=== PATIENT | female | born 1935 | race Caucasian/White ===

== ENCOUNTER 2017-01-09 11:27 | Outpatient (CLI) ==
[2016-03-07 17:02] VITALS: BMI 21.3
[2017-01-09 11:56] LABS: FLU INTERNAL QC INTERNAL QC VALID; RAPID FLU A NEGATIVE (NEGATIVE); RAPID FLU B NEGATIVE (NEGATIVE)
--- NOTE | 2017-01-09 12:21 | DI ---
EXAM: PA and lateral views of the chest HISTORY: Cough with congestion COMPARISON: Chest x-ray 01/22/2015 FINDINGS: The cardiomediastinal silhouette is normal. There is no pneumothorax or pleural effusion . There is no consolidation, nodule or mass. Lungs are mildly hyperinflated. The osseous structures demonstrate lumbar fusion hardware. IMPRESSION: Mild hyperinflation suggestive of chronic obstructive pulmonary disease with no acute c onsolidation.
== END 2017-01-09 11:28 | disposition home or self-care (01) ==
LOC: LAB 11:27
PROVIDERS: ATTEND Emergency Medicine
DX: R05 Cough (principal); R50.9 Fever, unspecified; R09.89 Other specified symptoms and signs involving the circulatory and respiratory systems
CPT/HCPCS: 87804

== ENCOUNTER 2017-12-25 11:38 | Outpatient (CLI) ==
[2016-03-07 17:02] VITALS: BMI 21.3
--- NOTE | 2017-12-25 13:23 | US ---
EXAM: Bilateral carotid artery Doppler History: Dizziness. Technique: Multiple sonographic images through the bilateral internal carotid arteries were obtained . Color duplex Doppler was used to interrogate vascular flow. Findings: The right ICA peak systolic velocities within normal limits measuring 1.0 meters per second. The rig ht ICA/cca PSV ratio is normal at 1.7. The right vertebral artery is patent and demonstrates antegra de flow. Gutierrez scale images demonstrate mild plaque buildup within the right internal carotid artery. The left ICA peak systolic velocity is within normal limits measuring 0.6 meters per second. The lef t ICA/cca PSV ratio is normal at 1.0. The left vertebral artery is patent and demonstrates antegrade flow. Gutierrez scale images demonstrate mild plaque buildup within the left internal carotid artery. Impression: No significant hemodynamic stenosis of the bilateral internal carotid arteries.
== END 2017-12-25 11:39 | disposition home or self-care (01) ==
LOC: RAD 11:38
PROVIDERS: ATTEND Internal Medicine
DX: R42 Dizziness and giddiness (principal)

== ENCOUNTER 2017-12-29 14:58 | Outpatient (CLI) ==
[2016-03-07 17:02] VITALS: BMI 21.3
--- NOTE | 2017-12-29 16:13 | CT ---
EXAM: CT head without contrast HISTORY: Labyrinthitis/and dizziness COMPARISON: None TECHNIQUE: Serial axial images of the brain were obtained from the skull base to the vertex without IV contrast. FINDINGS: The ventricles, cisterns and sulci demonstrate generalized volume loss. The ocampo-white ma tter junction is maintained. There is scattered low attenuation throughout the periventricular white matter.No midline shift or mass is identified. There is no abnormal intra or extra-axial fluid fidel ection. The paranasal sinuses demonstrate chronic right maxillary sinusitis changes. The mastoid ai r cells are clear. The osseous calvarium is intact. IMPRESSION: 1. No acute intracranial abnormality or hemorrhage. If further evaluation is indicated, MRI may be o btained. 2. The mastoid air cells are clear. 3. Chronic right maxillary sinusitis.
== END 2017-12-29 14:59 | disposition home or self-care (01) ==
LOC: RAD 14:58
PROVIDERS: ATTEND General Practice
DX: H83.09 Labyrinthitis, unspecified ear (principal); H65.93 Unspecified nonsuppurative otitis media, bilateral; H81.10 Benign paroxysmal vertigo, unspecified ear

== ENCOUNTER 2018-01-02 00:01 | Outpatient (POV) | payer OTHER ==
[2016-03-07 17:02] VITALS: BMI 21.3
== END 2018-01-02 17:00 ==
LOC: OUTPT 00:01
PROVIDERS: ATTEND Otolaryngology
DX: H91.90 Unspecified hearing loss, unspecified ear (principal); R42 Dizziness and giddiness

== ENCOUNTER 2018-11-01 14:16 | Inpatient (IN) ==
[2018-11-01] MEDS ORDERED: [UNRECOGNIZED DRUG - REMARK] MM PRN (14:57)
[2018-11-01 15:00] VITALS: BMI 23.5
[2018-11-01] MEDS: COREG PO SCH (16:32)
[2018-11-01] MEDS: XARELTO PO SCH (16:32)
[2018-11-01] MEDS: ULTRAM PO PRN (18:21)
[2018-11-01] MEDS: LIPITOR PO SCH (21:14)
[2018-11-02] MEDS: ULTRAM PO PRN ×3 (02:41→20:49)
[2018-11-02] MEDS: SYNTHROID PO SCH (05:55)
--- NOTE | 2018-11-02 08:21 | RS.PTINEVL ---
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 States her son in law drove her to [facility]. - Level of function Prior to this admission, the patient could do the following:: Independent Selfcare, Independent ADL's, Independent Ambulation, Drive, Participated in Social Activities Outside home Current Level of Function: Partially Dependent Current Equipment Used at Home: rollator rwx, cane, Pain Assessement - Location Right Knee Description: Aching Pain Behavior: Rubbing Site, Facial Grimacing Pain Aggravating Factors: Changing Position, Exercise/Activity, Standing, Walking Pain Alleviating Factors: Ice, Medication Interventions - Objective Patient Orientation: Person, Place, Time, Situation Observation: pt with steri strips on incision. Bruising noted to R knee. Range of Motion - ROM Right Upper Extremity AROM: WFL's Left Upper Extremity AROM: WFL's Right Lower Extremity AROM: Moderate limitation (knee flex/ext limited s/p TKR) Left Lower Extremity AROM: WFL's Muscle Strength - Muscle Strength Right Upper Extremity Strength: Mild Weakness (grossly 4/5) Left Upper Extremity Strength: Mild Weakness (grossly 4/5) Right Lower Extremity Strength: Mild Weakness (hip flex 4-/5, knee flex 3-/5, ext 3-/5, ankle Df/PF 4/5) Left Lower Extremity Strength: Mild Weakness (grossly 4+/5) Sensation - Sensation Right Upper Extremity Sensation: Intact/Normal Left Upper Extremity Sensation: Intact/Normal Right Lower Extremity Sensation: Intact/Normal Left Lower Extremity Sensation: Intact/Normal Palpation Palpation Findings: Tenderness Comments:: R knee s/p TKR Balance - Sitting Balance and Reactions Static Sitting Balance: Good Dynamic Sitting Balance: Fair Sitting Equilibrium Reactions: Within Normal Limits Left, Within Normal Limit Right Sitting Protective Reactions: Within Normal Limits Left, Within Normal Limit Right - Standing Balance and Reactions Static Standing Balance: Poor Dynamic Standing Balance: Poor Standing Equilibrium Reactions: Delayed Left, Delayed Right Standing Protective Reactions: Delayed Left, Delayed Right Functional Mobility - Bed Mobility Rolling R/L: CGA Scooting: Min Assist Supine to Sit: Min Assist Sit to Supine: Min Assist - Transfers Sit to Stand: Min Assist Stand to Sit: Min Assist - Safety Awareness Safety Awareness: Good ANU INDEX SCORE: 59 Ambulation - Ambulation Assistive Device Used: Rolling Walker Orthotic/Prosthetic Device: No Distance: 75ft Assistance needed with Ambulation: CGA Gait Deviations: Forward posture, Short stride Ambulation Comments: pt amb with decreased step length and flexed posture, decreased heel strike/toe off gait pattern. Factors Affecting Ambulation: Decreased Balance, Pain, Weakness, Decreased ROM, Decreased Safety Treatment time - Time with patient Length of Evaluation: 19 Total treatment time: 31 Patient Education - Education Patient Education: Activity Modification, Education of Plan of Care Teaching Recipient: Patient Teaching Methods: Discussion Comments: discussion regarding POC and safety with transfers and gait. Assessment - Assessment Problem List:: Decreased level of function, Requires training/education, Decreased safety/Risk of falls, Weakness, Pain limits previous level of function Rehab Potential: Good Further Therapy Indicated?: Yes Candidate for Swing Bed for Therapy Services?: pt is a swing bed patient Evaluation Complexity: HISTORY: Medium (RTKR, vertigo, hypotension, OA, ), EXAM OF BODY SYSTEMS: Medium (ROM, balance, strength, gait, transfers), CLINICAL PRESENTATION: Medium, CLINICAL DECISION MAKING: Medium Short Term Goals GOAL #1: pt independent with bed mobility Goal to be met by: 11/06/18 GOAL #2: pt transfer sup to/from sit to/from stand CGA to SBA Goal to be met by: 11/06/18 GOAL #3: pt amb 150ft with rwx with CGA to SBA with improved sequencing. Goal to be met by: 11/06/18 GOAL #4: Improve ROM R knee flex 90 ext -7 Goal to be met by: 11/06/18 [place] Goals GOAL #1: pt independent with HEP Goal to be met by: 11/12/18 GOAL #2: pt transfer sup to/from sit to/from stand independently Goal to be met by: 11/12/18 GOAL #3: pt amb functional household distances with rwx with no LOB Goal to be met by: 11/12/18 Plan Plan of Care: Therapeutic EX, Therapeutic Activity Other:: gait training Frequency of Treatment: 1-2 X day, as tolerated Duration of Treatment: 10 days Anticipated Discharge Destination: Home Treatment Diagnosis (ICD 10 Codes): aftercare following total knee replacement. R26.2 difficulty walking. R26.81 balance impaired. M62.81 muscle weakness Has the Physician been added for Co-signature?: Yes
[2018-11-02] MEDS: BALANCED B-100 PO SCH (08:48)
[2018-11-02] MEDS: MULTIVITAMIN TABLET PO SCH (08:48)
[2018-11-02] MEDS: OMEGA-3 FISH OIL PO SCH (08:48)
[2018-11-02] MEDS: VITAMIN E PO SCH (08:48)
[2018-11-02] MEDS: CALCIUM 500 + VIT D 200 MG TABLET PO SCH (08:48)
--- NOTE | 2018-11-02 08:50 | PCM.PROG ---
Attending Provider: ATTENDING PROVIDER: Dr. LEA BALES This patient is seen with Krista Last, Nurse Practitioner. DATE OF SERVICE: 11/02/18 SUBJECTIVE: This 83 year old WHITE/ F was hospitalized 11/01/18. The patient is sitting in chair resting comfortably. Right knee mildly swollen with minimal erythema. She states she didn't sleep very well last night. REVIEW OF SYSTEMS: CONSTITUTIONAL: No night sweats. No fatigue, malaise, lethargy. No fever or chills. HEENT: Eyes: No visual changes. No eye pain. No eye discharge. ENT: No runny nose. No epistaxis. No sinus pain. No odynophagia. No congestion. RESPIRATORY: No cough, no congestion. No hemoptysis. No shortness of breath. CARDIOVASCULAR: No angina symptoms. No CHF symptoms. No atypical chest pain for CAD. No palpitations. No orthopnea.. GASTROINTESTINAL: No abdominal pain. No nausea or vomiting. No diarrhea or constipation. No hematemesis. No hematochezia. GENITOURINARY: No urgency. No frequency. No dysuria. No hematuria. No obstructive symptoms. No discharge. No pain. No significant abnormal bleeding. MUSCULOSKELETAL: Right knee pain. NEUROLOGICAL: Awake, alert, oriented to time, place and person. No headache. No neck pain. No syncope. No seizures. No dizziness. PSYCHIATRIC: Not anxious. No depression. No suicidal thoughts. No homicidal thoughts. SKIN: No rash. No lesions. Right knee incision; clean, dry and intact. ENDOCRINE: No unexplained weight loss. No weight gain. HEMATOLOGIC/LYMPHATIC: No anemia. No purpura. No petechiae. No prolonged or excessive bleeding. No palpable lymph nodes. PHYSICAL EXAMINATION: GENERAL: The patient is awake, alert and oriented, sitting in chair in no distress. VITAL SIGNS: Temperature 98.4 F, Pulse 84, Respiratory Rate 16, BP 116/67, Pulse Ox 94% HEENT: Head normocephalic, atraumatic. Eyes: Extraocular muscles are intact. Pupils are equal, round and reactive to light and accommodation. Ears: No lesions. Nose appeared normal. Throat: No exudate or erythema. NECK: Supple. No JVD, no carotid bruit. No lymphadenopathy or thyromegaly. LUNGS: Clear to auscultation. Percussion note normal. Chest symmetrical. HEART: S1, S2, no S3. No murmurs. No cyanosis or clubbing. No ascites. Pulses: Dorsalis pedis and posterior tibial pulses +1 to +2 both sides. ABDOMEN: Soft. Non-tender. Bowel sounds active. No CVA tenderness. No mass felt. EXTREMITIES: Right knee incision. No edema. Full range of motion of all extremities, equal. NEUROLOGIC: No focal deficit. Cranial nerves II through XII are grossly intact. No headache, no double vision or headache. SKIN: Warm and dry. Right knee incision clean, dry and intact. No signs or symptoms of infection. Turgor-normal. LYMPHATIC: No palpable lymph nodes/no lymphedema. MUSCULOSKELETAL: Normal joints with no swelling. Muscle tone is normal. LAB REVIEW: 11/02/18 05:00 11/02/18 05:00 11/02/18 05:00: Sodium 132.1 L, Potassium 3.67, Chloride 96.0 L, Carbon Dioxide 33.9 H, Anion Gap 5.87, BUN 9.6, Creatinine 0.56 L, Estimated GFR (MDRD) 103.00 , BUN/Creatinine Ratio 17.14, Glucose 103.8, Calcium 8.94, Total Bilirubin 0.94 , AST 23.0, ALT 13.6, Alkaline Phosphatase 64.5, Total Protein 6.50, Albumin 3.42 L, Globulin 3.08, Albumin/Globulin Ratio 1.11 11/02/18 05:00: WBC 8.79, RBC 3.48 L, Hgb 10.6 L, Hct 32.2 L, MCV 92.5, MCH 30.5 , MCHC 32.9, RDW Coeff of Coy 13.5, Plt Count 268, Immature Gran % (Auto) 0.5, Neut % (Auto) 60.5, Lymph % (Auto) 24.0, [place] % (Auto) 13.1 H, Eos % (Auto) 1.4 , Baso % (Auto) 0.5, Immature Gran # (Auto) 0.0, Neut # (Auto) 5.3, Lymph # ( Auto) 2.1, [place] # (Auto) 1.2, Eos # (Auto) 0.1, Baso # (Auto) 0.0 ASSESSMENT:. 1. STATUS POST RIGHT KNEE REPLACEMENT, GAIT DISTURBANCE. 2. ANEMIA, SECONDARY TO SURGERY. PLAN: 1. Ativan 0.5 mg q.8 hs 2. Tylenol 500 mg q.6hr p.r.n. Plan and coordination of the patient's care discussed in the presence of Communications Manager and nurse. CONDITION: Stable SCRIBED BY: CECIL PEDERSON Inside [employer] scribed while in presence of service performed by Dr. Bales/Krista Last APRN on 11/02/18 ([id number])
[2018-11-02] MEDS: VITAMIN C PO SCH (08:53)
[2018-11-02] MEDS: COREG PO SCH ×2 (08:53→16:40)
[2018-11-02] MEDS: GINKGO BILOBA 60 MG PO SCH (08:55)
[2018-11-02] MEDS: TURMERIC ROOT EXTRACT PO SCH (08:58)
[2018-11-02] MEDS ORDERED: CALCIUM CARB PO SCH (09:00)
[2018-11-02] MEDS ORDERED: CITRATE PO SCH (09:00)
[2018-11-02] MEDS ORDERED: VITAMIN E 400 UNIT PO SCH (09:00)
[2018-11-02] MEDS ORDERED: VIT D3 PO SCH (09:00)
[2018-11-02] MEDS ORDERED: [UNRECOGNIZED DRUG - OTHER] PO SCH (09:00)
--- NOTE | 2018-11-02 10:46 | HP ---
DATE OF SERVICE: 11/01/18 REASON FOR HOSPITALIZATION/HISTORY OF PRESENT ILLNESS: 83 year old white female who just recently underwent a right total knee replacement by Dr. Sabino Mcintosh. She is here for PT and OT due to decline in mobility and gait disturbances. PAST MEDICAL HISTORY: Coronary artery disease with stent Hypothyroidism Dyslipidemia Anemia Polyarthritis Asthma Anxiety PAST SURGICAL HISTORY: L2 L3, L3 and L4 PLIF Dr. Thompson in [place] in February 2016 Coronary artery disease with stent in January [address] Elsy Mckeon Spine decompression with bilateral L5 instrumentation, Dr. Chilel in 1992 REVIEW OF SYSTEMS: CONSTITUTIONAL: No night sweats. No fatigue, malaise, lethargy. No fever or chills. HEENT: Eyes: No visual changes. No eye pain. No eye discharge. ENT: No runny nose. No epistaxis. No sinus pain. No sore throat. No odynophagia. No ear pain. No congestion. RESPIRATORY: No cough, no congestion. No hemoptysis. No shortness of breath. CARDIOVASCULAR: No angina symptoms. No CHF symptoms. No atypical chest pain for CAD. No palpitations. No PND. No orthopnea. GASTROINTESTINAL: No abdominal pain. No nausea or vomiting. No diarrhea or constipation. No hematemesis. No hematochezia. GENITOURINARY: No urgency. No frequency. No dysuria. No hematuria. No obstructive symptoms. No discharge. No pain. No significant abnormal bleeding. MUSCULOSKELETAL: No musculoskeletal pain. No joint swelling. No arthritis. Leg weakness. Right knee swelling and pain. NEUROLOGICAL: No headache. No neck pain. No syncope. No seizures. No dizziness. PSYCHIATRIC: Not anxious. No depression. No suicidal thoughts. No homicidal thoughts. SKIN: No rash. No lesions. No wounds. ENDOCRINE: No unexplained weight loss. No weight gain. HEMATOLOGIC/LYMPHATIC: No anemia. No purpura. No petechiae. No prolonged or excessive bleeding. No palpable lymph nodes. PERSONAL/FAMILY/SOCIAL HISTORY: She is . No alcohol or illicit drug use. She currently lives by herself. MEDICATIONS: Ginkgo Biloba 60mg Po daily Multivitamin PO daily Calcium +Vitamin D3 one tablet PO daily Clorazepate Dipotassium 7.5mg PO bedtime [place] 3 1200mg two capsules PO daily Aspirin 81mg PO daily Naproxen 500mg PO 3-4 times daily Meclizine 25mg Po four times a day Coreg 6.25mg PO twice a day Diazepam 2mg PO twice a day Turmeric 400nmg PO daily Synthroid 100mch PO QDAC Glucosamine 500 each PO daily B Complex 1each PO daily Ascorbic acid 500mg Po daily Biotene 44.3ml MM PRN Lipitor 20mg PO daily Vitamin E 400 units PO daily ALLERGIES: No known allergies PHYSICAL EXAMINATION: VITAL SIGNS: Temperature 97.9, pulse 95, blood pressure 142/64, respiratory rate 20, pulse ox 96%. HEENT: Head normocephalic, atraumatic. Eyes: Extraocular muscles are intact. Pupils are equal, round and reactive to light and accommodation. Ears: No lesions. Nose appeared normal. Throat: No exudate or erythema. NECK: Supple. No JVD, no carotid bruit. No lymphadenopathy or thyromegaly. LUNGS: Diminished breath sounds. Clear to auscultation. Percussion note normal. Chest symmetrical. HEART: S1, S2, no S3. No murmurs. No cyanosis or clubbing. No ascites. Pulses: Dorsalis pedis and posterior tibial pulses +1 to +2 bilaterally. ABDOMEN: Soft. Nontender. Bowel sounds active. No CVA tenderness. No mass felt. EXTREMITIES: No edema. Full range of motion of all extremities, equal. Right knee incision is clean, dry and intact. Mild swelling with very faint erythema. No signs or symptoms of infection. No drainage. NEUROLOGIC: No focal deficit. Cranial nerves II through XII are grossly intact. No headache, no double vision or headache. SKIN: Not dry. Intact. Turgor - normal. LYMPHATIC: No palpable lymph nodes/no lymphedema. MUSCULOSKELETAL: Normal joints with no swelling. Muscle tone is normal. ASSESSMENT: 1. Status post total right knee replacement 2. Gait disturbance 3. Anemia secondary to procedure 4. History of coronary artery disease 5. Dyslipidemia 6. Hypothyroidism PLAN: 1. We will admit to swing bed 2. CBC and CMP daily for the first three days 3. Routine telemetry for 24 hours then will d/c 4. Patient refused any opioid pain medication, will do Tylenol 500mg two tablet Q 6 hour PRN not to exceed the maximum Tylenol dose 5. Ativan 0.5mg at night to help her sleep 6. Continue all other home medications; she has Tramadol by Dr. Mcintosh for pain 7. PT/OT evaluation and treatment 8. Regular diet 9. Fall precautions. We will follow her closely. TIME SPENT: More than 70 minutes. ALCON
--- NOTE | 2018-11-02 11:59 | RS.OTINEVL ---
Subjective - Patient information Date of Evaluation: 11/02/18 Date of Arrival on Unit: 11/01/18 Admitted From:: Facility Transfer (transferred from [facility] for swing bed) Usual Living Arrangement: Alone Living Arrangement Comments: home alone. Home Environment: House, Stairs (few), Rail Medical History: Arthritis Medical History Comments:: GERD, anxiety, vertigo, hypotension, hypothyroidism LATEX ALLERGY?: No Surgical History: Knee Replacement (R TKR 10/29/18), Lumbar Spine Surgical History Comments:: cardiac stent, cataract surgery Medications: see chart - Level of function Prior to this admission, the patient could do the following:: Independent Selfcare, Independent ADL's, Independent Ambulation, Drive, Participated in Social Activities Outside home Abilities prior to this admission: Pt was Independent with her ADLS prior to surgery. Current Level of Function: Partially Dependent Current Equipment Used at Home: rollator rwx, cane, Pain Assessment - Pain Side: right Pain Location Body Site: Knee Pain Aggravating Factors: ADL's, Changing Position, Exercise/Activity, Standing , Sitting, Walking Pain Alleviating Factors: Ice, Medication, Position Change, Sitting Interventions - Objective Patient Orientation: Person, Place, Time, Situation Observation: Pt has some mild redness on her incision of the Right knee. Interventions - ROM Right Upper Extremity AROM: WFL's Left Upper Extremity AROM: WFL's - Strength Right Upper Extremity Strength: Mild Weakness Left Upper Extremity Strength: Mild Weakness - Sensation Right Upper Extremity Sensation: Intact/Normal Left Upper Extremity Sensation: Intact/Normal Balance - Sitting Balance Static Sitting Balance: Good Dynamic Sitting Balance: Good - Standing Balance Static Standing Balance: Fair Dynamic Standing Balance: Fair ADL Skills - Self Feeding Self Feeding: Independent - Grooming Grooming: CGA - Bathing Bathing UE: CGA Bathing LE: CGA - Dressing Dressing UE: CGA Dressing LE: CGA - Toilet Management Toileting Management: CGA Functional Mobility - Bed Mobility Rolling R/L: Not Tested Scooting: Not Tested Supine to Sit: Not Tested Sit to Supine: Not Tested - Transfers Sit to Stand: CGA Stand to Sit: CGA Stand Pivot Transfers: CGA - Ambulation Weight Bearing Status: WBAT Assistance needed with Ambulation: CGA - Safety Awareness Safety Awareness: Good ANU INDEX SCORE: 59 Additional Treatment Performed - Additional units charged ADL: 15 - Time with patient Length of Evaluation: 20 Total treatment time: 35 Activities Do you enjoy playing games?: Yes Would you be interested in leaving your room for activities?: Yes Would you enjoy group activities?: Yes What types of things do you enjoy doing? Any Hobbies?: Reading books Patient Interests:: Reading Books/Magazines, Watching Television, Puzzles/Games , Visiting/Socializing Patient Education Patient Education: Education of diagnosis, Home Exercise Program, Home Safety, Education of Plan of Care Teaching Recipient: Patient, Family Teaching Methods: Discussion Assessment Problem List:: Decreased level of function, Requires training/education, Decreased safety/Risk of falls, Weakness, Pain limits previous level of function Rehab Potential: Good Further Therapy Indicated?: Yes Candidate for Swing Bed for Therapy Services?: yes Evaluation Complexity: HISTORY: Medium, EXAM OF BODY SYSTEMS: Medium, CLINICAL DECISION MAKING: Medium Short Term Goals - Goals GOAL 1: Pt to increase BUE strength to 4/5 for indep. of ADLS Goal to be met by: 11/09/18 GOAL 2: Pt to increase LB dressing to Supervision. Goal to be met by: 11/09/18 GOAL 3: Pt to increase activity tolerance to 15 minutes of standing. Goal to be met by: 11/09/18 GOAL 4: Pt to increase dyn. std. bal. to Fair for safety of ADLS. Goal to be met by: 11/09/18 [facility] Goals GOAL 1: Pt to be Mod-independent with ADLS to increase safety at home. Goal to be met by: 11/11/18 GOAL 2: Pt to increase BUE strength to 4+/5 to increase function. Goal to be met by: 11/11/18 GOAL 3: Pt to increase dyn. std. Balance to G-/F+. Goal to be met by: 11/11/18 Plan Plan of Care: Therapeutic EX, Neuromuscular Re-Educ, Therapeutic Activity, Self- Care/Home Management Modalities: Cold Pack/Cryotherapy Frequency of Treatment: 1-2 X day, as tolerated Duration of Treatment: 2 Weeks Anticipated Discharge Destination: Home Treatment Diagnosis (ICD 10 Codes): M62.81 Muscle weakness, Z74.1 Need for assistance with self care. Has the Physician been added for Co-signature?: Yes
[2018-11-02] MEDS: XARELTO PO SCH (16:40)
[2018-11-02] MEDS: LIPITOR PO SCH (20:49)
[2018-11-02] MEDS ORDERED: ATIVAN PO SCH (21:00)
[2018-11-03] MEDS: SYNTHROID PO SCH (05:59)
[2018-11-03] MEDS: ULTRAM PO PRN ×3 (05:59→21:31)
[2018-11-03] MEDS: BALANCED B-100 PO SCH (09:09)
[2018-11-03] MEDS: VITAMIN E PO SCH (09:10)
[2018-11-03] MEDS: COREG PO SCH ×2 (09:10→17:17)
[2018-11-03] MEDS: MULTIVITAMIN TABLET PO SCH (09:10)
[2018-11-03] MEDS: OMEGA-3 FISH OIL PO SCH ×2 (09:11→09:20)
[2018-11-03] MEDS: CALCIUM 500 + VIT D 200 MG TABLET PO SCH (09:11)
[2018-11-03] MEDS: GINKGO BILOBA 60 MG PO SCH (09:12)
[2018-11-03] MEDS: TURMERIC ROOT EXTRACT PO SCH (09:12)
[2018-11-03] MEDS: VITAMIN C PO SCH (09:17)
[2018-11-03] MEDS ORDERED: COLACE PO PRN (09:29)
[2018-11-03] MEDS ORDERED: COLACE ONE (09:42)
[2018-11-03] MEDS: XARELTO PO SCH (16:39)
[2018-11-03] MEDS: LIPITOR PO SCH (21:31)
[2018-11-04] MEDS: CLORAZEPATE DIPOTASSIUM 7.5 MG PO PRN (00:47)
[2018-11-04] MEDS: TYLENOL PO PRN ×2 (00:50→10:33)
[2018-11-04] MEDS: SYNTHROID PO SCH (06:01)
[2018-11-04] MEDS ORDERED: [UNRECOGNIZED DRUG - OTHER] OP PRN (09:09)
[2018-11-04] MEDS ORDERED: CARBOXYMETHYL OP PRN (09:09)
[2018-11-04] MEDS ORDERED: GLY OP PRN (09:09)
[2018-11-04] MEDS ORDERED: POLY80 OP PRN (09:09)
[2018-11-04] MEDS: CALCIUM 500 + VIT D 200 MG TABLET PO SCH (09:15)
[2018-11-04] MEDS: BALANCED B-100 PO SCH (09:15)
[2018-11-04] MEDS: VITAMIN C PO SCH (09:16)
[2018-11-04] MEDS: VITAMIN E PO SCH (09:16)
[2018-11-04] MEDS: MULTIVITAMIN TABLET PO SCH (09:16)
[2018-11-04] MEDS: COREG PO SCH ×2 (09:16→16:31)
[2018-11-04] MEDS: GINKGO BILOBA 60 MG PO SCH (09:17)
[2018-11-04] MEDS: TURMERIC ROOT EXTRACT PO SCH (09:17)
[2018-11-04] MEDS: OMEGA-3 FISH OIL PO SCH (09:18)
[2018-11-04] MEDS: XARELTO PO SCH (16:31)
[2018-11-04] MEDS: ULTRAM PO PRN (17:09)
[2018-11-04] MEDS: LIPITOR PO SCH (20:44)
[2018-11-05] MEDS: TYLENOL PO PRN (05:17)
[2018-11-05] MEDS: ULTRAM PO PRN ×2 (05:17→21:03)
[2018-11-05] MEDS: SYNTHROID PO SCH (06:32)
[2018-11-05] MEDS: BALANCED B-100 PO SCH (08:30)
[2018-11-05] MEDS: CALCIUM 500 + VIT D 200 MG TABLET PO SCH (08:30)
[2018-11-05] MEDS: VITAMIN E PO SCH (08:30)
[2018-11-05] MEDS: VITAMIN C PO SCH (08:30)
[2018-11-05] MEDS: COREG PO SCH ×2 (08:30→16:29)
[2018-11-05] MEDS: MULTIVITAMIN TABLET PO SCH (08:30)
[2018-11-05] MEDS: GINKGO BILOBA 60 MG PO SCH (08:32)
[2018-11-05] MEDS: OMEGA-3 FISH OIL PO SCH (08:33)
[2018-11-05] MEDS: TURMERIC ROOT EXTRACT PO SCH (08:33)
--- NOTE | 2018-11-05 08:43 | PCM.PROG ---
Attending Provider: ATTENDING PROVIDER: Dr. LEA BALES This patient is seen with Krista Last, Nurse Practitioner. DATE OF SERVICE: 11/05/18 SUBJECTIVE: This 83 year old WHITE/ F was hospitalized 11/01/18. The patuient is resting comfortable. has been am;b well. swelling improved. pain controlled REVIEW OF SYSTEMS: CONSTITUTIONAL: No night sweats. No fatigue, malaise, lethargy. No fever or chills. HEENT: Eyes: No visual changes. No eye pain. No eye discharge. ENT: No runny nose. No epistaxis. No sinus pain. No odynophagia. No congestion. RESPIRATORY: No cough, no congestion. No hemoptysis. No shortness of breath. CARDIOVASCULAR: No angina symptoms. No CHF symptoms. No atypical chest pain for CAD. No palpitations. No orthopnea.. GASTROINTESTINAL: No abdominal pain. No nausea or vomiting. No diarrhea or constipation. No hematemesis. No hematochezia. GENITOURINARY: No urgency. No frequency. No dysuria. No hematuria. No obstructive symptoms. No discharge. No pain. No significant abnormal bleeding. MUSCULOSKELETAL: No musculoskeletal pain; no joint swelling. Right knee pain and swelling. NEUROLOGICAL: Awake, alert, oriented to time, place and person. No headache. No neck pain. No syncope. No seizures. No dizziness. PSYCHIATRIC: Not anxious. No depression. No suicidal thoughts. No homicidal thoughts. SKIN: No rash. No lesions. No wounds. ENDOCRINE: No unexplained weight loss. No weight gain. HEMATOLOGIC/LYMPHATIC: No anemia. No purpura. No petechiae. No prolonged or excessive bleeding. No palpable lymph nodes. PHYSICAL EXAMINATION: GENERAL: The patient is awake, alert and oriented, sitting in the chair in no distress. VITAL SIGNS: Temperature 98.1 F, Pulse 85, Respiratory Rate 16, BP 127/68, Pulse Ox 97% HEENT: Head normocephalic, atraumatic. Eyes: Extraocular muscles are intact. Pupils are equal, round and reactive to light and accommodation. Ears: No lesions. Nose appeared normal. Throat: No exudate or erythema. NECK: Supple. No JVD, no carotid bruit. No lymphadenopathy or thyromegaly. LUNGS: Clear to auscultation. Percussion note normal. Chest symmetrical. HEART: S1, S2, no S3. No murmurs. No cyanosis or clubbing. No ascites. Pulses: Dorsalis pedis and posterior tibial pulses +1 to +2 both sides. ABDOMEN: Soft. Non-tender. Bowel sounds active. No CVA tenderness. No mass felt. EXTREMITIES: No edema. Full range of motion of all extremities, equal. Minimal swelling and erythema. NEUROLOGIC: No focal deficit. Cranial nerves II through XII are grossly intact. No headache, no double vision or headache. SKIN: Not dry. Intact. Turgor-normal. Incision is clean, dry and intact with no signs of infection. LYMPHATIC: No palpable lymph nodes/no lymphedema. MUSCULOSKELETAL: Normal joints with no swelling. Muscle tone is normal. LAB REVIEW: 11/04/18 04:30 11/04/18 04:30 ASSESSMENT: Please see below. 1. STATUS POST RIGHT KNEE REPLACEMENT, GAIT DISTURBANCE. 2. ANEMIA, SECONDARY TO SURGERY. PLAN: 1. Continue PT/OT 2. Move labs to every third day Plan and coordination of the patient's care discussed in the presence of Wood Web Weaving Machine Operator and nurse. SCRIBED BY: Tulio CALLOWAY scribed while in presence of service performed by Dr. Bales/Krista Last APRN on 11/05/18 ([id number])
[2018-11-05] MEDS: XARELTO PO SCH (16:29)
[2018-11-05] MEDS: LIPITOR PO SCH (21:03)
[2018-11-06] MEDS: SYNTHROID PO SCH (06:01)
[2018-11-06] MEDS: VITAMIN C PO SCH (08:06)
[2018-11-06] MEDS: MULTIVITAMIN TABLET PO SCH (08:06)
[2018-11-06] MEDS: CALCIUM 500 + VIT D 200 MG TABLET PO SCH (08:06)
[2018-11-06] MEDS: BALANCED B-100 PO SCH (08:06)
[2018-11-06] MEDS: VITAMIN E PO SCH (08:06)
[2018-11-06] MEDS: COREG PO SCH ×2 (08:07→16:33)
[2018-11-06] MEDS: ULTRAM PO PRN ×3 (08:07→20:35)
[2018-11-06] MEDS: GINKGO BILOBA 60 MG PO SCH (08:09)
[2018-11-06] MEDS: OMEGA-3 FISH OIL PO SCH (08:10)
[2018-11-06] MEDS: TURMERIC ROOT EXTRACT PO SCH (08:10)
--- NOTE | 2018-11-06 14:05 | PN ---
DATE OF SERVICE: 11/01/18 SUBJECTIVE: This is an 83-year-old female who was seen and examined in her room 114. The patient has been transferred from [facility] after undergoing right total knee replacement three days ago. The patient is looking good, feeling good. She is trying to have lunch. PHYSICAL EXAMINATION: HEENT: Head normocephalic, atraumatic. Eyes: Extraocular muscles are intact. Pupils are equal, round and reactive to light and accommodation. Ears: No lesions. Nose appeared normal. Throat: No exudate or erythema. NECK: Supple. No JVD, no carotid bruit. No lymphadenopathy or thyromegaly. LUNGS: Clear to auscultation. Percussion note normal. Chest symmetrical. HEART: S1, S2, no S3. No murmurs. No cyanosis or clubbing. No ascites. ABDOMEN: Soft. Nontender. Bowel sounds active. No CVA tenderness. No mass felt. EXTREMITIES: Positive for right knee swelling, mild redness noted on the medial aspect. Calf is swollen, nontender. Pulses +2 bilaterally, dorsalis pedis and posterior tibial. No edema. Full range of motion of all extremities, equal. NEUROLOGIC: No focal deficit. Cranial nerves II through XII are grossly intact. No headache, no double vision or headache. SKIN: Not dry. Intact. Turgor - normal. LYMPHATIC: No palpable lymph nodes/no lymphedema. MUSCULOSKELETAL: Normal joints with no swelling. Muscle tone is normal. LABS: Hemoglobin 10.2, hematocrit 30. ASSESSMENT: 1. Right total knee replacement. 2. Coronary artery disease. 3. Hypertension. 4. Dyslipidemia. PLAN: 1. Monitor her pain level. The patient says she doesn't need Oxycodone, Oxycontin. Tramadol is good enough for her. 2. Will monitor hemoglobin, hematocrit. 3. Will do an EKG. CONDITION: Stable. The patient was seen and examined with the nurse practitioner. TIME SPENT: More than 30 minutes. Plan and coordination of the patient's care discussed in the presence of nurse. ALCON
[2018-11-06] MEDS: XARELTO PO SCH (16:33)
[2018-11-06] MEDS: LIPITOR PO SCH (20:35)
[2018-11-07] MEDS: CLORAZEPATE DIPOTASSIUM 7.5 MG PO PRN (02:49)
[2018-11-07] MEDS: SYNTHROID PO SCH (05:39)
[2018-11-07] MEDS: BALANCED B-100 PO SCH (08:33)
[2018-11-07] MEDS: OMEGA-3 FISH OIL PO SCH (08:33)
[2018-11-07] MEDS: VITAMIN E PO SCH (08:33)
[2018-11-07] MEDS: COREG PO SCH ×2 (08:34→16:59)
[2018-11-07] MEDS: VITAMIN C PO SCH (08:34)
[2018-11-07] MEDS: GINKGO BILOBA 60 MG PO SCH (08:34)
[2018-11-07] MEDS: MULTIVITAMIN TABLET PO SCH (08:34)
[2018-11-07] MEDS: CALCIUM 500 + VIT D 200 MG TABLET PO SCH (08:34)
[2018-11-07] MEDS: TURMERIC ROOT EXTRACT PO SCH (08:35)
[2018-11-07] MEDS: ULTRAM PO PRN ×2 (08:42→20:40)
--- NOTE | 2018-11-07 09:22 | PCM.PROG ---
Attending Provider: ATTENDING PROVIDER: Dr. LEA BALES This patient is seen with Krista Last, Nurse Practitioner. DATE OF SERVICE: 11/07/18 SUBJECTIVE: This 83 year old WHITE/ F was hospitalized 11/01/18. The patient is resting comfortably. She has been ambulating with rollator. The patient had diarrhea yesterday but it has resolved. She is eat fairly well REVIEW OF SYSTEMS: CONSTITUTIONAL: No night sweats. No fatigue, malaise, lethargy. No fever or chills. HEENT: Eyes: No visual changes. No eye pain. No eye discharge. ENT: No runny nose. No epistaxis. No sinus pain. No odynophagia. No congestion. RESPIRATORY: No cough, no congestion. No hemoptysis. No shortness of breath. CARDIOVASCULAR: No angina symptoms. No CHF symptoms. No atypical chest pain for CAD. No palpitations. No orthopnea.. GASTROINTESTINAL: No abdominal pain. No nausea or vomiting. No diarrhea or constipation. No hematemesis. No hematochezia. GENITOURINARY: No urgency. No frequency. No dysuria. No hematuria. No obstructive symptoms. No discharge. No pain. No significant abnormal bleeding. MUSCULOSKELETAL: No musculoskeletal pain; no joint swelling. Right knee pain. Leg weakness. NEUROLOGICAL: Awake, alert, oriented to time, place and person. No headache. No neck pain. No syncope. No seizures. No dizziness. PSYCHIATRIC: Not anxious. No depression. No suicidal thoughts. No homicidal thoughts. SKIN: No rash. No lesions. No wounds. Incision site is clean, dry and intact. Bruising is resolving. ENDOCRINE: No unexplained weight loss. No weight gain. HEMATOLOGIC/LYMPHATIC: No anemia. No purpura. No petechiae. No prolonged or excessive bleeding. No palpable lymph nodes. PHYSICAL EXAMINATION: GENERAL: The patient is awake, alert and oriented, sitting in the chair in no distress. VITAL SIGNS: Temperature 98.0 F, Pulse 78, Respiratory Rate 16, BP 116/60, Pulse Ox 98% HEENT: Head normocephalic, atraumatic. Eyes: Extraocular muscles are intact. Pupils are equal, round and reactive to light and accommodation. Ears: No lesions. Nose appeared normal. Throat: No exudate or erythema. NECK: Supple. No JVD, no carotid bruit. No lymphadenopathy or thyromegaly. LUNGS: Clear to auscultation. Percussion note normal. Chest symmetrical. HEART: S1, S2, no S3. No murmurs. No cyanosis or clubbing. No ascites. Pulses: Dorsalis pedis and posterior tibial pulses +1 to +2 both sides. ABDOMEN: Soft. Non-tender. Bowel sounds active. No CVA tenderness. No mass felt. EXTREMITIES: No edema. Full range of motion of all extremities, equal. NEUROLOGIC: No focal deficit. Cranial nerves II through XII are grossly intact. No headache, no double vision or headache. SKIN: Not dry. Intact. Turgor-normal. LYMPHATIC: No palpable lymph nodes/no lymphedema. MUSCULOSKELETAL: Normal joints with no swelling. Muscle tone is normal. LAB REVIEW: 11/04/18 04:30 11/04/18 04:30 ASSESSMENT: Please see below. 1. STATUS POST RIGHT KNEE REPLACEMENT, GAIT DISTURBANCE. 2. ANEMIA, SECONDARY TO SURGERY. PLAN: 1. Continue PT/OT 2. Fall precautions. Plan and coordination of the patient's care discussed in the presence of White Sugar Boiler and nurse. SCRIBED BY: Karen CALLOWAYist scribed while in presence of service performed by Dr. Bales/Krista Last APRN on 11/07/18 ([id number])
[2018-11-07] MEDS: TYLENOL PO PRN (13:20)
[2018-11-07] MEDS: XARELTO PO SCH (16:59)
[2018-11-07] MEDS: LIPITOR PO SCH (20:40)
[2018-11-08] MEDS: CLORAZEPATE DIPOTASSIUM 7.5 MG PO PRN (03:08)
[2018-11-08] MEDS: SYNTHROID PO SCH (06:00)
[2018-11-08] MEDS: COREG PO SCH ×2 (08:34→16:40)
[2018-11-08] MEDS: BALANCED B-100 PO SCH (08:34)
[2018-11-08] MEDS: TURMERIC ROOT EXTRACT PO SCH (08:34)
[2018-11-08] MEDS: CALCIUM 500 + VIT D 200 MG TABLET PO SCH (08:34)
[2018-11-08] MEDS: VITAMIN E PO SCH (08:34)
[2018-11-08] MEDS: OMEGA-3 FISH OIL PO SCH (08:34)
[2018-11-08] MEDS: VITAMIN C PO SCH (08:34)
[2018-11-08] MEDS: MULTIVITAMIN TABLET PO SCH (08:34)
[2018-11-08] MEDS: GINKGO BILOBA 60 MG PO SCH (08:35)
[2018-11-08] MEDS: TYLENOL PO PRN (08:41)
--- NOTE | 2018-11-08 09:34 | PN ---
DATE OF SERVICE: 11/03/18 SUBJECTIVE: 83-year-old white female hospitalized in the swing bed with right knee total knee replacement. The patient is looking a lot better. Hydration status has improved. She said that last night she didn't take any pain medication but in the morning she had to take one. REVIEW OF SYSTEMS: CONSTITUTIONAL: No night sweats. No fatigue, malaise, lethargy. No fever or chills. HEENT: Eyes: No visual changes. No eye pain. No eye discharge. ENT: No runny nose. No epistaxis. No sinus pain. No sore throat. No odynophagia. No congestion. RESPIRATORY: No cough, no congestion. No hemoptysis. No shortness of breath. CARDIOVASCULAR: No angina symptoms. No CHF symptoms. No atypical chest pain for CAD. No palpitations. No PND. No orthopnea. GASTROINTESTINAL: Appetite seems to be improving. No abdominal pain. No nausea or vomiting. No diarrhea or constipation. No hematemesis. No hematochezia. GENITOURINARY: No urgency. No frequency. No dysuria. No hematuria. No obstructive symptoms. No discharge. No pain. No significant abnormal bleeding. MUSCULOSKELETAL: Mild soreness of the right knee. NEUROLOGICAL: No headache. No neck pain. No syncope. No seizures. No dizziness. PSYCHIATRIC: Not anxious. No depression. No suicidal thoughts. No homicidal thoughts. SKIN: No rash. No lesions. No wounds. ENDOCRINE: No unexplained weight loss. No weight gain. HEMATOLOGIC/LYMPHATIC: No anemia. No purpura. No petechiae. No prolonged or excessive bleeding. No palpable lymph nodes. PHYSICAL EXAMINATION: VITAL SIGNS: Temperature 98, pulse 85, respiratory rate 16, BP 118/60, pulse ox 98%. HEENT: Head normocephalic, atraumatic. Eyes: Extraocular muscles are intact. Pupils are equal, round and reactive to light and accommodation. Ears: No lesions. Nose appeared normal. Throat: No exudate or erythema. NECK: Supple. No JVD, no carotid bruit. No lymphadenopathy or thyromegaly. LUNGS: Decreased breath sounds but clear to auscultation. Percussion note normal. Chest symmetrical. HEART: S1, S2, no S3. No murmurs. No cyanosis or clubbing. No ascites. Pulses: Dorsalis pedis and posterior tibial pulses +1 to +2 bilaterally. ABDOMEN: Soft. Nontender. Bowel sounds active. No CVA tenderness. No mass felt. EXTREMITIES: No edema. Full range of motion of all extremities, equal. NEUROLOGIC: No focal deficit. Cranial nerves II through XII are grossly intact. No headache, no double vision or headache. SKIN: Not dry. Intact. Turgor - normal. LYMPHATIC: No palpable lymph nodes/no lymphedema. MUSCULOSKELETAL: Normal joints with no swelling. Muscle tone is normal. LABS: Hemoglobin 11, hematocrit 33, WBC 8,000, normal differential. Creatinine 0.5, BUN 12, potassium 4. ASSESSMENT: 1. STATUS POST RIGHT KNEE REPLACEMENT RECOVERING WELL WITH INCISION LOOKING CLEAR. THE RIGHT CALF IS LESS SWOLLEN OR NONTENDER. NO RED STREAKS NOTED. 2. CORONARY ARTERY DISEASE. 3. STATUS POST BACK SURGERY. 4. ANEMIA. 5. DYSLIPIDEMIA. PLAN: 1. Continue the same management with pain medications. TIME SPENT: More than 30 minutes. Plan and coordination of the patient's care discussed in the presence of nurse. ALCON
--- NOTE | 2018-11-08 09:43 | PN ---
DATE OF SERVICE: 11/05/18 SUBJECTIVE: The patient was seen and examined today for right total knee replacement. The patient is doing well, highly motivated, pain tolerance. Cardiovascular status is stable. Knee is less swollen. The right calf is also less swollen. Condition is stable. TIME SPENT: More than 30 minutes. Plan and coordination of the patient's care discussed in the presence of nurse. ALCON
[2018-11-08] MEDS: XARELTO PO SCH (16:40)
[2018-11-08] MEDS: LIPITOR PO SCH (20:45)
[2018-11-08] MEDS: ULTRAM PO PRN (20:45)
[2018-11-09] MEDS: SYNTHROID PO SCH (05:33)
--- NOTE | 2018-11-09 08:26 | PCM.PROG ---
Attending Provider: ATTENDING PROVIDER: Dr. LEA BALES DATE OF SERVICE: 11/09/18 SUBJECTIVE: This 83 year old WHITE/ F was hospitalized 11/01/18 in swing bed for right knee replacement. The patient is progressing well. REVIEW OF SYSTEMS: CONSTITUTIONAL: No night sweats. No fatigue, malaise, lethargy. No fever or chills. HEENT: Eyes: No visual changes. No eye pain. No eye discharge. ENT: No runny nose. No epistaxis. No sinus pain. No odynophagia. No congestion. RESPIRATORY: No cough, no congestion. No hemoptysis. No shortness of breath. CARDIOVASCULAR: No angina symptoms. No CHF symptoms. No atypical chest pain for CAD. No palpitations. No orthopnea.. GASTROINTESTINAL: No abdominal pain. No nausea or vomiting. No diarrhea or constipation. No hematemesis. No hematochezia. GENITOURINARY: No urgency. No frequency. No dysuria. No hematuria. No obstructive symptoms. No discharge. No pain. No significant abnormal bleeding. MUSCULOSKELETAL: Soreness right knee. NEUROLOGICAL: Awake, alert, oriented to time, place and person. No headache. No neck pain. No syncope. No seizures. No dizziness. PSYCHIATRIC: Not anxious. No depression. No suicidal thoughts. No homicidal thoughts. SKIN: No rash. No lesions. Right knee surrounding irritation. ENDOCRINE: No unexplained weight loss. No weight gain. HEMATOLOGIC/LYMPHATIC: No anemia. No purpura. No petechiae. No prolonged or excessive bleeding. No palpable lymph nodes. PHYSICAL EXAMINATION: GENERAL: The patient is awake, alert and oriented, sitting in chair in no distress. VITAL SIGNS: Temperature 98.1 F, Pulse 81, Respiratory Rate 16, BP 107/64, Pulse Ox 95% HEENT: Head normocephalic, atraumatic. Eyes: Extraocular muscles are intact. Pupils are equal, round and reactive to light and accommodation. Ears: No lesions. Nose appeared normal. Throat: No exudate or erythema. NECK: Supple. No JVD, no carotid bruit. No lymphadenopathy or thyromegaly. LUNGS: Clear to auscultation. Percussion note normal. Chest symmetrical. HEART: S1, S2, no S3. No murmurs. No cyanosis or clubbing. No ascites. Pulses: Dorsalis pedis and posterior tibial pulses +1 to +2 both sides. ABDOMEN: Soft. Non-tender. Bowel sounds active. No CVA tenderness. No mass felt. EXTREMITIES: Right knee is less swollen, still with surrounding irritation of skin present. Calf is loose, nontender, no swelling. No edema. Full range of motion of all extremities, equal. NEUROLOGIC: No focal deficit. Cranial nerves II through XII are grossly intact. No headache, no double vision or headache. SKIN: Warm and dry. Intact. Turgor-normal. LYMPHATIC: No palpable lymph nodes/no lymphedema. MUSCULOSKELETAL: Normal joints with no swelling. Muscle tone is normal. LAB REVIEW: 11/08/18 04:20 11/08/18 04:20 ASSESSMENT: Please see below. 1. Right knee replacement recovering very well with physical therapy, walking with walker. 2. Cardiovascular status stable. No symptoms of CHF or CAD. PLAN: Continue same treatment. Plan and coordination of the patient's care discussed in the presence of Department Administrator and nurse. CONDITION: Stable SCRIBED BY: Tulio JACK scribed while in presence of service performed by Dr. LEA BALES on 11/09/18 ([id number])
[2018-11-09] MEDS: TURMERIC ROOT EXTRACT PO SCH (09:00)
[2018-11-09] MEDS: GINKGO BILOBA 60 MG PO SCH (09:00)
[2018-11-09] MEDS: VITAMIN E PO SCH (09:37)
[2018-11-09] MEDS: CALCIUM 500 + VIT D 200 MG TABLET PO SCH (09:37)
[2018-11-09] MEDS: MULTIVITAMIN TABLET PO SCH (09:37)
[2018-11-09] MEDS: BALANCED B-100 PO SCH (09:38)
[2018-11-09] MEDS: OMEGA-3 FISH OIL PO SCH (09:38)
[2018-11-09] MEDS: COREG PO SCH ×2 (09:38→18:22)
[2018-11-09] MEDS: VITAMIN C PO SCH (09:38)
[2018-11-09] MEDS: ULTRAM PO PRN ×2 (11:04→22:47)
[2018-11-09] MEDS: TYLENOL PO PRN (18:22)
[2018-11-09] MEDS: XARELTO PO SCH (18:22)
[2018-11-09] MEDS: LIPITOR PO SCH (20:03)
[2018-11-10] MEDS ORDERED: SYNTHROID ONE (05:44)
[2018-11-10] MEDS: SYNTHROID PO SCH (05:49)
[2018-11-10] MEDS: TYLENOL PO PRN ×2 (06:38→13:51)
[2018-11-10] MEDS: MULTIVITAMIN TABLET PO SCH (08:35)
[2018-11-10] MEDS: VITAMIN E PO SCH (08:35)
[2018-11-10] MEDS: VITAMIN C PO SCH (08:35)
[2018-11-10] MEDS: CALCIUM 500 + VIT D 200 MG TABLET PO SCH (08:35)
[2018-11-10] MEDS: OMEGA-3 FISH OIL PO SCH (08:35)
[2018-11-10] MEDS: BALANCED B-100 PO SCH (08:35)
[2018-11-10] MEDS: COREG PO SCH ×2 (08:35→17:00)
[2018-11-10] MEDS: GINKGO BILOBA 60 MG PO SCH (08:36)
[2018-11-10] MEDS: TURMERIC ROOT EXTRACT PO SCH (08:36)
[2018-11-10] MEDS: ULTRAM PO PRN ×2 (15:03→20:47)
[2018-11-10] MEDS: XARELTO PO SCH (17:00)
[2018-11-10] MEDS: LIPITOR PO SCH (20:46)
[2018-11-11] MEDS: CLORAZEPATE DIPOTASSIUM 7.5 MG PO PRN (03:44)
[2018-11-11] MEDS: SYNTHROID PO SCH (05:40)
[2018-11-11] MEDS: CALCIUM 500 + VIT D 200 MG TABLET PO SCH (08:02)
[2018-11-11] MEDS: BALANCED B-100 PO SCH (08:02)
[2018-11-11] MEDS: MULTIVITAMIN TABLET PO SCH (08:03)
[2018-11-11] MEDS: GINKGO BILOBA 60 MG PO SCH (08:03)
[2018-11-11] MEDS: COREG PO SCH ×2 (08:03→16:46)
[2018-11-11] MEDS: VITAMIN C PO SCH (08:04)
[2018-11-11] MEDS: TURMERIC ROOT EXTRACT PO SCH (08:04)
[2018-11-11] MEDS: OMEGA-3 FISH OIL PO SCH (08:04)
[2018-11-11] MEDS: VITAMIN E PO SCH (08:05)
[2018-11-11] MEDS: ULTRAM PO PRN (11:00)
[2018-11-11] MEDS: XARELTO PO SCH (16:46)
[2018-11-11] MEDS: TYLENOL PO PRN (17:58)
[2018-11-11] MEDS ORDERED: TORADOL IM PRN ×2 (18:03→18:06)
[2018-11-11] MEDS ORDERED: TORADOL ONE (18:09)
[2018-11-11] MEDS: LIPITOR PO SCH (20:57)
[2018-11-12] MEDS: SYNTHROID PO SCH (05:51)
[2018-11-12] MEDS: VITAMIN C PO SCH (08:38)
[2018-11-12] MEDS: MULTIVITAMIN TABLET PO SCH (08:38)
[2018-11-12] MEDS: CALCIUM 500 + VIT D 200 MG TABLET PO SCH (08:39)
[2018-11-12] MEDS: COREG PO SCH ×2 (08:39→17:51)
[2018-11-12] MEDS: BALANCED B-100 PO SCH (08:39)
[2018-11-12] MEDS: OMEGA-3 FISH OIL PO SCH (08:39)
[2018-11-12] MEDS: VITAMIN E PO SCH (08:40)
[2018-11-12] MEDS: TURMERIC ROOT EXTRACT PO SCH (08:40)
[2018-11-12] MEDS: GINKGO BILOBA 60 MG PO SCH (08:41)
--- NOTE | 2018-11-12 09:07 | PCM.PROG ---
Attending Provider: ATTENDING PROVIDER: Dr. LEA BALES This patient is seen with Krista Last, Nurse Practitioner. DATE OF SERVICE: 11/12/18 SUBJECTIVE: This 83 year old WHITE/ F was hospitalized 11/01/18. The patient is resting comfortably. She had to have Toradol last night for muscle aches and spasms. Home visit is scheduled for today. Anticipate possible discharge within next couple of days. REVIEW OF SYSTEMS: CONSTITUTIONAL: No night sweats. No fatigue, malaise, lethargy. No fever or chills. HEENT: Eyes: No visual changes. No eye pain. No eye discharge. ENT: No runny nose. No epistaxis. No sinus pain. No odynophagia. No congestion. RESPIRATORY: No cough, no congestion. No hemoptysis. No shortness of breath. CARDIOVASCULAR: No angina symptoms. No CHF symptoms. No atypical chest pain for CAD. No palpitations. No orthopnea.. GASTROINTESTINAL: No abdominal pain. No nausea or vomiting. No diarrhea or constipation. No hematemesis. No hematochezia. GENITOURINARY: No urgency. No frequency. No dysuria. No hematuria. No obstructive symptoms. No discharge. No pain. No significant abnormal bleeding. MUSCULOSKELETAL: No musculoskeletal pain; no joint swelling. Right knee pain. NEUROLOGICAL: Awake, alert, oriented to time, place and person. No headache. No neck pain. No syncope. No seizures. No dizziness. PSYCHIATRIC: Not anxious. No depression. No suicidal thoughts. No homicidal thoughts. SKIN: No rash. No lesions. No wounds. ENDOCRINE: No unexplained weight loss. No weight gain. HEMATOLOGIC/LYMPHATIC: No anemia. No purpura. No petechiae. No prolonged or excessive bleeding. No palpable lymph nodes. PHYSICAL EXAMINATION: GENERAL: The patient is awake, alert and oriented, lying/sitting in bed in no distress. VITAL SIGNS: Temperature 97.8 F, Pulse 78, Respiratory Rate 18, BP 134/70, Pulse Ox 97% HEENT: Head normocephalic, atraumatic. Eyes: Extraocular muscles are intact. Pupils are equal, round and reactive to light and accommodation. Ears: No lesions. Nose appeared normal. Throat: No exudate or erythema. NECK: Supple. No JVD, no carotid bruit. No lymphadenopathy or thyromegaly. LUNGS: Clear to auscultation. Percussion note normal. Chest symmetrical. HEART: S1, S2, no S3. No murmurs. No cyanosis or clubbing. No ascites. Pulses: Dorsalis pedis and posterior tibial pulses +1 to +2 both sides. ABDOMEN: Soft. Non-tender. Bowel sounds active. No CVA tenderness. No mass felt. EXTREMITIES: No edema. Full range of motion of all extremities, equal. NEUROLOGIC: No focal deficit. Cranial nerves II through XII are grossly intact. No headache, no double vision or headache. SKIN: Not dry. Intact. Turgor-normal. Incision site is clean, dry and intact. LYMPHATIC: No palpable lymph nodes/no lymphedema. MUSCULOSKELETAL: Normal joints with no swelling. Muscle tone is normal. LAB REVIEW: 11/12/18 06:50 11/12/18 06:50 11/12/18 06:50: Sodium 131.2 L, Potassium 4.10, Chloride 94.9 L, Carbon Dioxide 34.9 H, Anion Gap 5.50, BUN 18.1 H, Creatinine 0.75, Estimated GFR (MDRD) 73.00 , BUN/Creatinine Ratio 24.13, Glucose 103.0, Calcium 9.15, Total Bilirubin 0.55 , AST 30.6, ALT 13.9, Alkaline Phosphatase 70.0, Total Protein 7.04, Albumin 3.57, Globulin 3.47, Albumin/Globulin Ratio 1.02 11/12/18 06:50: WBC 7.64, RBC 3.54 L, Hgb 10.7 L, Hct 32.9 L, MCV 92.9, MCH 30.2 , MCHC 32.5, RDW Coeff of Coy 13.0, Plt Count 465 H, Immature Gran % (Auto) 0.8 , Neut % (Auto) 57.1, Lymph % (Auto) 23.8, [place] % (Auto) 14.9 H, Eos % (Auto) 2.9, Baso % (Auto) 0.5, Immature Gran # (Auto) 0.1, Neut # (Auto) 4.4, Lymph # ( Auto) 1.8, [place] # (Auto) 1.1, Eos # (Auto) 0.2, Baso # (Auto) 0.0 ASSESSMENT: Please see below. 1. STATUS POST RIGHT KNEE REPLACEMENT, GAIT DISTURBANCE. 2. ANEMIA, SECONDARY TO SURGERY. PLAN: 1. Continue PT/OT 2. Anticipate discharge this week. Plan and coordination of the patient's care discussed in the presence of Parking Meter Servicer and nurse. SCRIBED BY: Tulio CALLOWAY scribed while in presence of service performed by Dr. Bales/Krista Last APRN on 11/12/18 ([id number])
[2018-11-12] MEDS: TYLENOL PO PRN ×2 (14:14→22:51)
[2018-11-12] MEDS: ULTRAM PO PRN ×2 (14:14→21:19)
--- NOTE | 2018-11-12 14:22 | PN ---
DATE OF SERVICE: 11/07/18 SUBJECTIVE: The patient was seen and examined with Nurse Practitioner. The patient's condition seems to be improving. She is highly motivated. Hydration status looks good. Pain in under control. PHYSICAL EXAMINATION: HEENT: Head normocephalic, atraumatic. Eyes: Extraocular muscles are intact. Pupils are equal, round and reactive to light and accommodation. Ears: No lesions. Nose appeared normal. Throat: No exudate or erythema. NECK: Supple. No JVD, no carotid bruit. No lymphadenopathy or thyromegaly. LUNGS: Clear to auscultation. Percussion note normal. Chest symmetrical. HEART: S1, S2, no S3. No murmurs. No cyanosis or clubbing. No ascites. Pulses: Dorsalis pedis and posterior tibial pulses +1 to +2 bilaterally. ABDOMEN: Soft. Nontender. Bowel sounds active. No CVA tenderness. No mass felt. EXTREMITIES: No edema. Full range of motion of all extremities, equal. Calf muscle right is much less swollen then when she came in. NEUROLOGIC: No focal deficit. Cranial nerves II through XII are grossly intact. No headache, no double vision or headache. SKIN: Not dry. Intact. Turgor - normal. Incision is healing well and no evidence of infection. LYMPHATIC: No palpable lymph nodes/no lymphedema. MUSCULOSKELETAL: Normal joints with no swelling. Muscle tone is normal. TIME SPENT: More than 30 minutes. Plan and coordination of the patient's care discussed in the presence of nurse. ALCON
--- NOTE | 2018-11-12 14:44 | PN ---
DATE OF SERVICE: 11/11/18 SUBJECTIVE: The patient was seen on followup in swing bed for right total knee replacement. The patient is doing well and she says that the knee is less sore but today she has back pain. Declined to take anything more than Ultram. REVIEW OF SYSTEMS: CONSTITUTIONAL: No night sweats. No fatigue, malaise, lethargy. No fever or chills. HEENT: Eyes: No visual changes. No eye pain. No eye discharge. ENT: No runny nose. No epistaxis. No sinus pain. No sore throat. No odynophagia. No congestion. RESPIRATORY: No cough, no congestion. No hemoptysis. No shortness of breath. CARDIOVASCULAR: No angina symptoms. No CHF symptoms. No atypical chest pain for CAD. No palpitations. No PND. No orthopnea. GASTROINTESTINAL: No abdominal pain. No nausea or vomiting. No diarrhea or constipation. No hematemesis. No hematochezia. GENITOURINARY: No urgency. No frequency. No dysuria. No hematuria. No obstructive symptoms. No discharge. No pain. No significant abnormal bleeding. MUSCULOSKELETAL: No musculoskeletal pain; no joint swelling. NEUROLOGICAL: No headache. No neck pain. No syncope. No seizures. No dizziness. PSYCHIATRIC: Not anxious. No depression. No suicidal thoughts. No homicidal thoughts. SKIN: No rash. No lesions. No wounds. ENDOCRINE: No unexplained weight loss. No weight gain. HEMATOLOGIC/LYMPHATIC: No anemia. No purpura. No petechiae. No prolonged or excessive bleeding. No palpable lymph nodes. PHYSICAL EXAMINATION: VITAL SIGNS: Temperature 98.6, pulse 78, respiratory rate 18, blood pressure 104/58 and pulse ox 94%. HEENT: Head normocephalic, atraumatic. Eyes: Extraocular muscles are intact. Pupils are equal, round and reactive to light and accommodation. Ears: No lesions. Nose appeared normal. Throat: No exudate or erythema. NECK: Supple. No JVD, no carotid bruit. No lymphadenopathy or thyromegaly. LUNGS: Clear to auscultation. Percussion note normal. Chest symmetrical. HEART: S1, S2, no S3. No murmurs. No cyanosis or clubbing. No ascites. Pulses: Dorsalis pedis and posterior tibial pulses +1 to +2 bilaterally. ABDOMEN: Soft. Nontender. Bowel sounds active. No CVA tenderness. No mass felt. EXTREMITIES: No edema. Full range of motion of all extremities, equal. Right knee looks less swollen and both calf muscles are normal. NEUROLOGIC: No focal deficit. Cranial nerves II through XII are grossly intact. No headache, no double vision or headache. SKIN: Not dry. Intact. Turgor - normal. LYMPHATIC: No palpable lymph nodes/no lymphedema. MUSCULOSKELETAL: Normal joints with no swelling. Muscle tone is normal. ASSESSMENT: 1. Right total knee replacement progressing well with continued physical therapy 2. Back pain likely osteoarthritic 3. Coronary artery disease, stable 4. Anemia, stable. PLAN: 1. Continue same treatment 2. Continue physical therapy. TIME SPENT: More than 30 minutes. Plan and coordination of the patient's care discussed in the presence of nurse. ALCON
[2018-11-12] MEDS: XARELTO PO SCH (17:51)
[2018-11-12] MEDS: LIPITOR PO SCH (21:19)
[2018-11-13] MEDS: SYNTHROID PO SCH (05:58)
[2018-11-13 06:21] VITALS: BP 112/65; TEMP 98.2
--- NOTE | 2018-11-13 09:26 | PCM.PROG ---
Attending Provider: ATTENDING PROVIDER: Dr. LEA BALES This patient is seen with Krista Last, Nurse Practitioner. DATE OF SERVICE: 11/13/18 SUBJECTIVE: This 83 year old WHITE/ F was hospitalized 11/01/18. The patient is sitting in chair resting comfortably. The home visit went well yesterday. The patient is ready for discharge. Home Health will be following her. REVIEW OF SYSTEMS: CONSTITUTIONAL: No night sweats. No fatigue, malaise, lethargy. No fever or chills. HEENT: Eyes: No visual changes. No eye pain. No eye discharge. ENT: No runny nose. No epistaxis. No sinus pain. No odynophagia. No congestion. RESPIRATORY: No cough, no congestion. No hemoptysis. No shortness of breath. CARDIOVASCULAR: No angina symptoms. No CHF symptoms. No atypical chest pain for CAD. No palpitations. No orthopnea.. GASTROINTESTINAL: No abdominal pain. No nausea or vomiting. No diarrhea or constipation. No hematemesis. No hematochezia. GENITOURINARY: No urgency. No frequency. No dysuria. No hematuria. No obstructive symptoms. No discharge. No pain. No significant abnormal bleeding. MUSCULOSKELETAL: Right knee pain. NEUROLOGICAL: Awake, alert, oriented to time, place and person. No headache. No neck pain. No syncope. No seizures. No dizziness. PSYCHIATRIC: Not anxious. No depression. No suicidal thoughts. No homicidal thoughts. SKIN: No rash. No lesions. Right knee incision. ENDOCRINE: No unexplained weight loss. No weight gain. HEMATOLOGIC/LYMPHATIC: No anemia. No purpura. No petechiae. No prolonged or excessive bleeding. No palpable lymph nodes. PHYSICAL EXAMINATION: GENERAL: The patient is awake, alert and oriented, sitting in chair in no distress. VITAL SIGNS: Temperature 98.2 F, Pulse 86, Respiratory Rate 18, BP 112/65, Pulse Ox 98% HEENT: Head normocephalic, atraumatic. Eyes: Extraocular muscles are intact. Pupils are equal, round and reactive to light and accommodation. Ears: No lesions. Nose appeared normal. Throat: No exudate or erythema. NECK: Supple. No JVD, no carotid bruit. No lymphadenopathy or thyromegaly. LUNGS: Clear to auscultation. Percussion note normal. Chest symmetrical. HEART: S1, S2, no S3. No murmurs. No cyanosis or clubbing. No ascites. Pulses: Dorsalis pedis and posterior tibial pulses +1 to +2 both sides. ABDOMEN: Soft. Non-tender. Bowel sounds active. No CVA tenderness. No mass felt. EXTREMITIES: Right knee incision clean, dry and intact. Minimal redness and swelling. No edema. Full range of motion of all extremities, equal. NEUROLOGIC: No focal deficit. Cranial nerves II through XII are grossly intact. No headache, no double vision or headache. SKIN: Not dry. Intact. Turgor-normal. LYMPHATIC: No palpable lymph nodes/no lymphedema. MUSCULOSKELETAL: Normal joints with no swelling. Muscle tone is normal. LAB REVIEW: 11/12/18 06:50 11/12/18 06:50 ASSESSMENT: 1. STATUS POST RIGHT KNEE REPLACEMENT, GAIT DISTURBANCE. 2. ANEMIA, SECONDARY TO SURGERY. PLAN: 1. Discharge home 2. Xarelto times 7 more days 3. Tramadol p.r.n for pain 4. Home Health for PT/OT 5. Will follow in 7 to 10 days Plan and coordination of the patient's care discussed in the presence of Senior Reliability Engineer and nurse. CONDITION: Stable SCRIBED BY: CECIL PEDERSON Pile Driver Engineer scribed while in presence of service performed by Dr. Bales/Krista Last APRN on 11/13/18 ([id number])
[2018-11-13] MEDS: OMEGA-3 FISH OIL PO SCH (09:54)
[2018-11-13] MEDS: VITAMIN E PO SCH (09:54)
[2018-11-13] MEDS: MULTIVITAMIN TABLET PO SCH (09:55)
[2018-11-13] MEDS: VITAMIN C PO SCH (09:55)
[2018-11-13] MEDS: COREG PO SCH (09:55)
[2018-11-13] MEDS: BALANCED B-100 PO SCH (09:55)
[2018-11-13] MEDS: CALCIUM 500 + VIT D 200 MG TABLET PO SCH (09:56)
[2018-11-13] MEDS: GINKGO BILOBA 60 MG PO SCH (09:56)
[2018-11-13] MEDS: TURMERIC ROOT EXTRACT PO SCH (09:57)
[2018-11-13] MEDS: ULTRAM PO PRN (14:27)
--- NOTE | 2018-11-15 07:19 | PN ---
DATE OF SERVICE: 11/13/18 SUBJECTIVE: The patient was seen and examined with Nurse Practitioner. The patient has progressed really well. PHYSICAL EXAMINATION: HEENT: Head normocephalic, atraumatic. Eyes: Extraocular muscles are intact. Pupils are equal, round and reactive to light and accommodation. Ears: No lesions. Nose appeared normal. Throat: No exudate or erythema. NECK: Supple. No JVD, no carotid bruit. No lymphadenopathy or thyromegaly. LUNGS: Clear to auscultation. Percussion note normal. Chest symmetrical. HEART: S1, S2, no S3. No murmurs. No cyanosis or clubbing. No ascites. Pulses: Dorsalis pedis and posterior tibial pulses +1 to +2 bilaterally. ABDOMEN: Soft. Nontender. Bowel sounds active. No CVA tenderness. No mass felt. EXTREMITIES: No edema. Full range of motion of all extremities, equal. Right knee looks alot better, less swelling, still mild redness. Nontender. NEUROLOGIC: No focal deficit. Cranial nerves II through XII are grossly intact. No headache, no double vision or headache. SKIN: Not dry. Intact. Turgor - normal. LYMPHATIC: No palpable lymph nodes/no lymphedema. MUSCULOSKELETAL: Normal joints with no swelling. Muscle tone is normal. CONDITION: Stable. PLAN: 1. The patient is going to be discharged. TIME SPENT: More than 30 minutes. Plan and coordination of the patient's care discussed in the presence of nurse. ALCON
--- NOTE | 2018-11-15 07:21 | PN ---
11/01/18: Level 5 11/02/18: Intermediate 11/03/18: Intermediate 11/04/18: Intermediate 11/05/18: Intermediate 11/06/18: Intermediate 11/07/18: Intermediate 11/08/18: Intermediate 11/09/18: Intermediate 11/10/18: Intermediate 11/11/18: Intermediate 11/12/18: Intermediate 11/13/18: D as in discharge MTDD
--- NOTE | 2018-11-15 11:09 | DS ---
DATE OF SERVICE: 11/13/18 FINAL DIAGNOSIS: 1. GAIT DECLINE RELATED TO TOTAL RIGHT KNEE REPLACEMENT 2. HISTORY OF VERTIGO 3. S/P CATARACT SURGERY - DATE UNKNOWN 4. S/P HEART STENT 5. ASTHMA 6. HYPOTENSION 7. S/P POLYPS REMOVED 2015 8. S/P FUSION L2-L4 2015 9. HYPOTHYROIDISM 10. ANXIETY LAST VITALS: Temperature 98.2, pulse 86, respiratory rate 18, BP 112/65, pulse ox 98 DISCHARGE INSTRUCTIONS: 1. Followup appointment with Dr. Alexander Bales on December 11 at 1110 a.m. Arrive early as you will need an x-ray before being seen. 2. You have an appointment with Dr. Sukhdeep Bales/Krista Last APRN on MondayNovember 19 at 3:45 p.m. Please call and reschedule if unable to keep appointment. 3. No driving until released by Dr. Alexander Bales M.D. from [facility]. 4. [facility] has been arranged for you to continue PT/OT. They will call you before they come with time. They will see you tomorrow. 5. Use ice pack to right knee for pain. Do not place ice pack directly on knee. Use a covering around ice pack. MEDICATIONS AT DISCHARGE: Tylenol 500 mg p.o. q.6h p.r.n. Vitamin C 500 mg p.o. daily [facility] Lipitor 20 mg p.o. bedtime [facility] Calcium/Vitamin D one each p.o. daily [facility] Coreg 6.25 mg p.o. b.i.d. with meal [facility] Colace 100 mg p.o. daily p.r.n. Fish Oil 1,000 mg p.o. daily [facility] Synthroid 100 mcg p.o. q.d a.c. [facility] Multivitamin one tablet p.o. daily [facility] Clorazepate Dipotassium 7.5 mg p.o. bedtime p.r.n. Ginkgo Biloba Extract 60 mg p.o. daily [facility] Glucosamine Chondroitin 500 each p.o. daily [facility] Turmeric Root Extract 400 mg p.o. daily [facility] Biotene Moisturizing Mouth p.r.n. Refresh Optive Advanced Drops one each OP q.i.d. p.r.n. Xarelto 10 mg p.o. q. p.m. [facility] Tramadol 50 mg p.o. q.6h p.r.n. Vitamin B Complex one tab p.o. daily [facility] Vitamin E 400 unit p.o. daily [facility] DISCONTINUED MEDICATIONS: Tylenol 500-1000 mg p.o. q.6h p.r.n. Toradol 80 mg IM q.8h p.r.n. Do Not Take Aspirin 81 mg Do Not Take Ibuprofen NEW PRESCRIPTIONS PER DR. Alexander BALES: 1. Xarelto 10 mg take one tablet every morning until after evening dose on 11/19. After completing Xarelto (beginning 11/20/18), take aspirin 325 mg two times a day for three weeks. Stop Aspirin after 2nd dose on 12/10/18. 2. Ultram 50 mg take one or two tablets every six hours as needed for pain. (MEDICATIONS CALLED IN TO [facility] PER PATIENT REQUEST) DIET INSTRUCTIONS: As tolerated. Increase protein intake. ACTIVITY: Gradually resume activity. Use Rollator when up. Elevate legs when sitting. SMOKING: Nonsmoker DISEASE SPECIFIC EDUCATION: Post op care - instructions from Dr. Alexander Bales M.D. Medications Activity Diet Follow up appointments No driving until released by Dr. [facility] to continue PT/OT HOSPITAL COURSE: This is an 83-year-old white female who recently underwent a right total knee replacement by Dr. Bales in [place]. She was admitted here in the swing bed for gait decline to do physical and occupational therapy. She has done remarkably well. Her pain has been controlled with Tramadol. She initially had some Toradol IV but has since been controlled. She has been doing well with physical therapy, had a home visit yesterday. She has been ambulating on her own with assistance of a walker. She has very minimal swelling and redness of the right knee. Incision is clean, dry and intact. She is on her second week of Xarelto. She will finish out 21 days. She has 7 more days left at home. She has a prescription for Tramadol to take at home. She did experience only minor anemia with a low hemoglobin of 10.3 after surgery but since has been stable. All of her home medications have been continued. Her vital signs have been stable. She has had a fairly uneventful course doing well with physical therapy meeting all of her goals. She is alert and oriented. Labs have all looked stable. Today, on day of discharge, hemoglobin 10.7, hematocrit 32. Sodium 131, BUN 18, creatinine 0.7, potassium 4.1. We will send her home today in stable condition. Again, she is to continue with the Xarelto daily for DVT prophylaxis as standard for total knee replacement. She is to keep her appointment with Dr. Bales in [place] to follow up for her knee. She is going to go home with home health to continue her physical and occupational therapy and will follow up with her in the office. TIME SPENT: More than 60 minutes. ALCON
--- NOTE | 2018-11-15 11:37 | CM.DICTOOL ---
ADMISSION: 11/01/18 14:16 DISCHARGE: 11/13/18 FINAL DIAGNOSIS GAIT DECLINE RELATED TO TOTAL RIGHT KNEE REPLACEMENT HISTORY OF: VERTIGO S/P CATARACT SURGERY - DATE UNKNOWN S/P HEART STENT ASTHMA HYPOTENSION S/P POLYPS REMOVED 2016 S/P FUSION L2-L4 2016 HYPOTHYROIDISM ANXIETY LAST VITALS Temp Pulse Resp BP Pulse Ox 98.2 F 86 18 112/65 98 11/13/18 06:00 11/13/18 06:00 11/13/18 06:00 11/13/18 06:00 11/13/18 06:00 TAKE THESE MEDICATIONS AT HOME Acetaminophen (Tylenol) 500 mg PO Q6H PRN PRN Reason: Pain Last Admin: 11/12/18 22:51 Dose: 500 mg Ascorbic Acid (Vitamin C) 500 mg PO DAILY [facility] Last Admin: 11/12/18 08:38 Dose: 500 mg Atorvastatin Calcium (Lipitor) 20 mg PO BEDTIME [facility] Last Admin: 11/12/18 21:19 Dose: 20 mg Calcium/Vitamin D (Calcium 500 + Vit D 200 Mg Tablet) 1 each PO DAILY [facility] Last Admin: 11/12/18 08:39 Dose: 1 each Carvedilol (Coreg) 6.25 mg PO BIDWM [facility] Last Admin: 11/12/18 17:51 Dose: 6.25 mg Docusate Sodium (Colace) 100 mg PO DAILY PRN PRN Reason: Constipation Last Admin: 11/03/18 09:46 Dose: 100 mg Fish Oil (Kamas-3 Fish Oil) 1,000 mg PO DAILY [facility] Last Admin: 11/12/18 08:39 Dose: 1,000 mg Levothyroxine Sodium (Synthroid) 100 mcg PO QDAC [facility] Last Admin: 11/13/18 05:58 Dose: 100 mcg Multivitamins (Multivitamin Tablet) 1 tab PO DAILY [facility] Last Admin: 11/12/18 08:38 Dose: 1 tab Non-Formulary Medication (Clorazepate Dipotassium [Clorazepate Dipotassium]) 7.5 mg PO BEDTIME PRN PRN Reason: Insomnia Last Admin: 11/11/18 03:44 Dose: 7.5 mg Non-Formulary Medication (Ginkgo Biloba Extract [Ginkgo Biloba]) 60 mg PO DAILY [facility] Last Admin: 11/12/18 08:41 Dose: Not Given Non-Formulary Medication (Glucosa Santillan 2kcl/Chondroitin Santillan [Glucosamine Chondroitin Caplet]) 500 each PO DAILY [facility] Last Admin: 11/12/18 08:41 Dose: Not Given Non-Formulary Medication (Turmeric Root Extract [Turmeric]) 400 mg PO DAILY [facility] Last Admin: 11/12/18 08:40 Dose: Not Given Non-Formulary Medication (Saliva Stimulant Comb. No.3 [Biotene Moisturizing Mouth]) 44.3 ml MM PRN PRN PRN Reason: DRY MOUTH Non-Formulary Medication (Carboxymethyl/Gly/Poly80/Pf [Refresh Optive Advanced Drops]) 1 each OP QID PRN PRN Reason: Dry Eye Rivaroxaban (Xarelto) 10 mg PO QPM [facility] Stop: 11/19/18 23:00 Last Admin: 11/12/18 17:51 Dose: 10 mg Tramadol HCl (Ultram) 50 mg PO Q6H PRN PRN Reason: Analgesia Stop: 12/01/18 21:00 Last Admin: 11/12/18 21:19 Dose: 50 mg Vitamin B Complex (Balanced B-100) 1 tab PO DAILY [facility] Last Admin: 11/12/18 08:39 Dose: 1 tab Vitamin E (Vitamin E) 400 unit PO DAILY [facility] Last Admin: 11/12/18 08:40 Dose: 400 unit ALLERGIES No Known Allergies Allergy (Unverified 11/12/13 12:05) Discontinued Medications Acetaminophen (Tylenol) 500 - 1,000 mg PO Q6H PRN PRN Reason: Pain Last Admin: 11/05/18 05:17 Dose: 1,000 mg Ketorolac Tromethamine (Toradol) 80 mg IM Q8H PRN PRN Reason: Pain NEW PRESCRIPTIONS: NEW MEDICATIONS PER DR. Alexander BALES: 1. XARELTO 10MG TAKE 1 TABLET EVERY EVENING UNTIL AFTER EVENING DOSE ON . AFTER COMPLETING XARELTO (BEGINNING 11/20/18), TAKE ASPIRIN 325MG 2 TIMES A DAY FOR 3 WEEKS. STOP ASPIRIN AFTER 2ND DOSE ON 12/10/18. 2. ULTRAM 50MG TAKE 1 OR 2 TABLETS MELIDA 6 HOURS NEEDED FOR PAIN. SMOKING: N/A DISEASE SPECIFIC EDUCATION: POST OP CARE - INSTRUCTIONS FROM DR. Alexander BALES MD MEDICATIONS ACTIVITY DIET FOLLOW UP APPOINTMENTS NO DRIVING UNTIL RELEASED BY DR. Alexander BALES COUNT INCLUDES THE [facility] TO CONTINUE PT/OT LAB REVIEW: 11/12/18 06:50 11/12/18 06:50 PLAN: DISCHARGE HOME TODAY. 11/13/18 CONTINUE HOME MEDICATIONS PER NURSING SHEET EXCEPT: DO NOT TAKE ASPIRIN 81MG. NEW MEDICATIONS PER DR. Alexander BALES: 1. XARELTO 10MG TAKE 1 TABLET EVERY EVENING UNTIL AFTER EVENING DOSE ON . AFTER COMPLETING XARELTO (BEGINNING 11/20/18), TAKE ASPIRIN 325MG 2 TIMES A DAY FOR 3 WEEKS. STOP ASPIRIN AFTER 2ND DOSE ON 12/10/18. 2. ULTRAM 50MG TAKE 1 OR 2 TABLETS MELIDA 6 HOURS NEEDED FOR PAIN. MEDICATIONS HAVE BEEN CALLED INTO [facility] PER YOUR REQUEST. DO NOT TAKE IBUPROFEN. USE ICE PACK TO RIGHT KNEE FOR PAIN. DO NOT PLACE ICE PACK DIRECTLY ON KNEE. USE A COVERING AROUND ICE PACK. DIET TOLERATED. INCREASE PROTEIN INTAKE. ACTIVITY: GRADUALLY RESUME ACTIVITY. USE ROLLATOR WHEN UP. ELEVATE LEGS WHEN SITTING. [facility] HAS BEEN ARRANGED FOR YOU TO CONTINUE PT/OT. THEY WILL CALL YOU BEFORE THEY COME WITH TIME. THEY WILL SEE YOU TOMORROW. YOU HAVE A FOLLOW UP APPOINTMENT WITH DR. Alexander BALES ON MondayNovember AT 1110AM. ARRIVE EARLY YOU WILL NEED AN X-RAY BEFORE BEING SEEN. YOU HAVE A FOLLOW UP APPOINTMENT WITH DR. Radha BALES/Saurabh TURNER APRN ON MondayOctober AT 345PM. PLEASE CALL AND RESCHEDULE IF UNABLE TO KEEP APPOINTMENT. PATIENT IS A FULL CODE. SITTING UP IN RECLINER. ALERT AND ORIENTED X 4. Saurabh TURNER APRN INTO SEE PATIENT. PATIENT STATES DOING GOOD AND IS READY TO GO HOME. STATES HOME VISIT DONE YESTERDAY AND WENT WELL. Saurabh TURNER APRN DISCUSSED PLAN OF CARE INCLUDING DISCHARGE, FOLLOW UP APPOINTMENTS AND MEDICATIONS. PATIENT VERBALIZES UNDERSTANDING AND AGREEMENT. APPETITE FOR PAST 24 HOURS 50-25-50%. DR. BALES STOPPED INTO SEE PATIENT. ENCOURAGED PATIENT TO EAT WELL ESPECIALLY PROTEINS AND CONTINUE TO USE ICE PACK. PATIENT VERBALIZES UNDERSTANDING AND AGREEMENT. VITAL SIGNS ARE STABLE. HAS BEEN AFEBRILE. POX 98% ON ROOM AIR. HEART TONES ARE REGULAR. NO C/O PAIN OR DISCOMFORT. LUNGS ARE CLEAR. NO COUGH OR DYSPNEA NOTED. ABDOMEN IS SOFT, NON-TENDER WITH BOWEL SOUNDS POSITIVE IN ALL 4 QUAD. LAST BM . PEDAL PULSES POSITIVE WITHOUT EDEMA. HAS INCISION TO RIGHT KNEE MEASURING 15CM. IS PALE PINK IN COLOR WITH SLIGHT EDEMA NOTED. BRUISING IS FADING. DERMABOND INTACT. IS WELL APPROXIMATED WITHOUT S/S OF INFECTION. IS A 1 PERSON ASSIST WITH USE OF ROLLATOR. GAIT IS STEADY AND SLOW. IS USING TRAMADOL AND ICE PACK FOR PAIN. USED TRAMADOL X 2AND TYLENOL X 2 IN PAST 24 HOURS. PAIN MEDICATION WAS USED MORE FOR RIGHT SHOULDER AND BACK/NECK PAIN. DR. LEA BALES MD Saurabh TURNER APRN
== END 2018-11-13 13:35 | disposition home or self-care (01) | DRG 812 ==
LOC: MEDSURG B 14:16
PROVIDERS: ADMIT Internal Medicine; ATTEND Internal Medicine
DX: D64.9 Anemia, unspecified (principal); J45.909 Unspecified asthma, uncomplicated; I95.9 Hypotension, unspecified; E03.9 Hypothyroidism, unspecified; F41.9 Anxiety disorder, unspecified; E78.5 Hyperlipidemia, unspecified; M54.9 Dorsalgia, unspecified; I25.10 Atherosclerotic heart disease of native coronary artery without angina pectoris; Z96.651 Presence of right artificial knee joint
CPT/HCPCS: 36415; 80053; 85025; 87081; 93005; 93010; 97802; 99306; 99309; 99316

== ENCOUNTER 2018-12-18 09:00 | Outpatient (RCR) ==
--- NOTE | 2018-12-13 16:21 | RS.OPPTEV2 ---
Date of Note: 12/13/18 Visit #: 1 Number of visits approved by Insurance: n/a Date of Evaluation: 12/13/18 Payer Source: MEDICARE Date of Onset/Injury/Change in Status: 10/29/18 Surgery Performed?: Yes (R TKR) Treatment Diagnosis: aftercare following total knee replacement, R knee pain, muscle weakness History of Condition/Mechanism of Injury:: pt underwent R TKR on 10/29/18. She received PT at [facility] [place] swing bed and did received short term of home health PT. Prior Level of Function.....Patient was independent with: ADL's, Self Care, Ambulation/Mobility, Community Integration/Access Level of Function: pt lives at home alone, dtrs are supportive. Functional Limitations: Sleep, Bending, Squatting, Ambulation Current Subjective/complaints:: pt reports she did have a fall on 12/09/18 tripping in open toes houseshoes.(she has since thrown houseshoes away). She states she feels she needs a bit more aggressive PT to help her return to independence and return to volunteering at hospital. Treatment Side (optional): Right *Precautions: n/a Medical History Medical History: Arthritis Medical History Comments:: GERD, anxiety, vertigo, hypotension, hypothyroidism Surgical History: Knee Replacement (R TKR 10/29/18), Lumbar Spine Surgical History Comments:: cardiac stent, cataract surgery Smoking Status: Never smoker Hx Home Medications: clorazapate, naproxen, levothyroxine, carvedilol, mecacycline, lipitor, multiple supplements Patient's Goals: get stronger and return to prior level of function. Pain Assessment - Pain Description Pain Location: R knee Pain Description: Aching Current Pain Intensity: 3 Worst Pain Intensity: 4-5 Functional Outcome Measure LE Functional Scale: 31 - G Codes & Severity Modifier G Codes & Modifier: n/a Source of G Code score: n/a Observation - Observation Posture: Forward Head, Rounded Shoulders, Increased Thoracic Kyphosis, Decreased Lumbar Lordosis Handedness: Right Girth Measurement Lower: RLE knee 39cm, 10cm below knee 32.3cm. LLE knee 36cm, 10 cm below knee 32cm Gait - Gait Pattern General Gait Pattern Observation: Antalgic Gait Gait Comments: pt amb with decreased step length, slight flexed posture, antalgic gait. pt amb with straight cane, usually uses rwx in the home, however states rwx was too heavy to get into and out of car. General Range of Motion: BUE WFL's. LLE WFL's. RLE hip flex WFL's, ankle DF/PF WFL's Muscle Strength: BUE 5/5. LLE 5/5. RLE hip flex 4-/5, ankle DF/PF 4-/5 Knee ROM: Left WFL's Knee Muscle Strength: Left WFL's - Right Knee ROM Right Knee Extension: -4 Right Knee Flexion: 91 (AAROM) Knee ROM Limitations: Soft Tissue Tightness, Pain - Right Knee Strength Right Knee Extension: 3- Fair- Right Knee Flexion: 3- Fair- Palpation Palpation Findings: Tenderness (in knee joint especially at medial joint line) Sensation - Sensation Right Upper Extremity: Intact/Normal Left Upper Extremity: Intact/Normal Right Lower Extremity: Impaired (n/t R medial knee) Left Lower Extremity: Intact/Normal Balance - Sitting Balance Static Sitting Balance: Normal Dynamic Sitting Balance: Good - Standing Balance Static Standing Balance: Good Dynamic Standing Balance: Fair - Comments Balance Assessment Comments: gait speed: 0.35 meters/sec which is consistent with household walker. - Heat/Cryotherapy Treatment: Cryotherapy Comments:: R knee Interventions - Exercise/Activities/Manual Therapy Exercises/Activities: pt performed RLE QS (w heel elevated), SAQ, HS, LAQ x 10 reps, Manual Therapy: n/a HOME EXERCISE PROGRAM: pt has written HEP from home care and swing bed. pt given QS with heel elevated as well as SAQ. - Charges Timed Code Treatment Minutes: 50 Total Treatment Time: 61 Procedures billed for this date of service:: eval med, ex, CP EVALUATION COMPLEXITY LEVEL EVALUATION COMPLEXITY LEVEL: HISTORY: Medium (OA, age, h/o fall), EXAM OF BODY SYSTEMS: Medium (ROM, strength, edema, pain, balance), CLINICAL PRESENTATION: Medium, CLINICAL DECISION MAKING: Medium Assessment Assessment: pt presents with decreased ROM R knee, strength, edema R knee, difficulty walking and decreased balance. Feel pt would benefit from skilled PT for therex for strengthening, balance activities. Patient Education: Home Exercise Program, Education of Plan of Care Rehab Potential: Good Short Term Goals Goal #1: pt independent with HEP Goal to be met by: 12/27/18 Goal #2: Improve R knee flex 95 ext -2 Goal to be met by: 12/27/18 Goal #3: Improve RLE strength 4- to 4/5 Goal to be met by: 12/27/18 Goal #4: Edema decreased RLE equal to LLE Goal to be met by: 12/27/18 Alf Goals Goal #1: pt report ability to perform normal daily household tasks w less pain Goal to be met by: 01/11/19 Goal #2: Improve R knee flex 100 ext 0 Goal to be met by: 01/11/19 Goal #3: Gait speed improved to 0.8m/s consistent with community ambulator Goal to be met by: 01/11/19 Plan - Treatment to be Provided Procedures: Therapeutic Exercises, Therapeutic Activity, Gait Training, Patient Education Modalities: Electrical Stimulation, Cryotherapy, Hot Packs - Treatment Plan Frequency: 2-3x a week Duration: 4 weeks Dates of Tie Presser Goals: 01/11/19 Expiration date of current Insurance Approval:: n/a - Treatment Code (1) Right knee pain Code(s): M25.561 - PAIN IN RIGHT KNEE Qualifiers: Chronicity: chronic Qualified Code(s): M25.561 - Pain in right knee; G89.29 - Other chronic pain (2) Effusion of knee joint right Code(s): M25.461 - EFFUSION, RIGHT KNEE (3) Muscle weakness Code(s): M62.81 - MUSCLE WEAKNESS (GENERALIZED) (4) Joint stiffness of knee Qualifiers: Laterality: right Qualified Code(s): M25.661 - Stiffness of right knee, not elsewhere classified (5) Status post total right knee replacement Code(s): Z96.651 - PRESENCE OF RIGHT ARTIFICIAL KNEE JOINT
--- NOTE | 2018-12-18 14:38 | RS.OPPTDN ---
Subjective Date of Note: 12/18/18 Visit #: 2 Number of visits approved by Insurance: NA Date of Evaluation: 12/13/18 Payer Source: MEDICARE Treatment Diagnosis: aftercare following total knee replacement, R knee pain, muscle weakness Current Subjective/complaints:: Patient reports soreness and some swelling right knee and lower leg. States she is actively working on passive extension with towel roll under ankle. *Precautions: n/a Pain Assessment - Pain Description Pain Location: right knee Pain Description: Tightness Pain Description: soreness Current Pain Intensity: mild to mod - Heat/Cryotherapy Treatment: Cryotherapy ([id number] to the right knee following EX. Patient in supine. ) Interventions - Exercise/Activities/Manual Therapy Exercises/Activities: Assisted stretching of the right hamstrings, SKTC, and heel cords. Isometric quads, hamstrings. Red theraband for resistive right ankle df, ham curl, hip add and hip abd in hook-lying. SAQ 3#. SLR. Isometric hip add and isometric ankle inversion. In sitting, LAQ, heel slides, and red theraband resisted ham curl. Total minutes of Exercise: 32mins Manual Therapy: n/a HOME EXERCISE PROGRAM: pt has written HEP from home care and swing bed. pt given QS with heel elevated as well as SAQ. - Charges Timed Code Treatment Minutes: 32mins Total Treatment Time: 44mins Procedures billed for this date of service:: EX2, CP Assessment: Patient able to progress mat exercises today. Patient Education: Home Exercise Program Patient demonstrates compliance with HEP?: Yes Short Term Goals Goal #1: pt independent with HEP Goal to be met by: 12/27/18 Progress towards Goal:: Progressing Goal #2: Improve R knee flex 95 ext -2 Goal to be met by: 12/27/18 Progress towards Goal:: Progressing Goal #3: Improve RLE strength 4- to 4/5 Goal to be met by: 12/27/18 Goal #4: Edema decreased RLE equal to LLE Goal to be met by: 12/27/18 Clinic Lead Goals Goal #1: pt report ability to perform normal daily household tasks w less pain Goal to be met by: 01/11/19 Goal #2: Improve R knee flex 100 ext 0 Goal to be met by: 01/11/19 Goal #3: Gait speed improved to 0.8m/s consistent with community ambulator Goal to be met by: 01/11/19 Plan Dates of Clinic Lead Goals: 01/11/19 Expiration date of current Insurance Approval:: 01/11/19 PLAN: Progress exercise to increase strength and improve functional ambulation.
== END 2018-12-20 23:59 ==
PROVIDERS: ATTEND Orthopaedic Surgery
DX: Z96.651 Presence of right artificial knee joint (principal); M25.561 Pain in right knee

== ENCOUNTER 2019-01-11 09:15 | Outpatient (RCR) ==
--- NOTE | 2018-12-21 15:35 | RS.OPPTDN ---
Subjective Date of Note: 12/21/18 Visit #: 3 Number of visits approved by Insurance: NA Date of Evaluation: 12/13/18 Payer Source: MEDICARE Treatment Diagnosis: aftercare following total knee replacement, R knee pain, muscle weakness Current Subjective/complaints:: Patient reports she is seeing improvement in strength and flexibility of the right knee since starting therapy. *Precautions: n/a Pain Assessment - Pain Description Pain Location: right knee Current Pain Intensity: mild to mod - Heat/Cryotherapy Treatment: Cryotherapy (ended with 10mins CP to the right knee. Patient in supne. ) Interventions - Exercise/Activities/Manual Therapy Exercises/Activities: Assisted stretching of the right hamstrings, SKTC, and heel cords. Isometric quads, hamstrings. Red theraband for resistive right ankle df, ham curl, hip add and hip abd in hook-lying. Green theraband for resistive ankle df. SAQ 3#. SLR 3s/10reps. SLR with 1# 10reps. Isometric hip add and isometric ankle inversion. In sitting, LAQ, heel slides, and red theraband resisted ham curl. Began stationary bike for half revolutions 2mins, patient needs assist on/off and with foot placement on pedals. Total minutes of Exercise: 42mins Manual Therapy: n/a HOME EXERCISE PROGRAM: pt has written HEP from home care and swing bed. pt given QS with heel elevated as well as SAQ. - Charges Timed Code Treatment Minutes: 42mins Total Treatment Time: 52mins Procedures billed for this date of service:: EX3 Assessment: Patient reporting good response to progressive exercise. Patient Education: Home Exercise Program Patient demonstrates compliance with HEP?: Yes Short Term Goals Goal #1: pt independent with HEP Goal to be met by: 12/27/18 Progress towards Goal:: Progressing Goal #2: Improve R knee flex 95 ext -2 Goal to be met by: 12/27/18 Progress towards Goal:: Progressing Goal #3: Improve RLE strength 4- to 4/5 Goal to be met by: 12/27/18 Goal #4: Edema decreased RLE equal to LLE Goal to be met by: 12/27/18 Cell Pourer Goals Goal #1: pt report ability to perform normal daily household tasks w less pain Goal to be met by: 01/11/19 Progress towards goal: Progressing Goal #2: Improve R knee flex 100 ext 0 Goal to be met by: 01/11/19 Goal #3: Gait speed improved to 0.8m/s consistent with community ambulator Goal to be met by: 01/11/19 Plan Dates of Cell Pourer Goals: 01/11/19 Expiration date of current Insurance Approval:: 01/11/19 PLAN: Continue with progressive exercise to increase functional ambulation and activity level.
--- NOTE | 2018-12-25 12:13 | RS.OPPTDN ---
Subjective Date of Note: 12/25/18 Visit #: 4 Number of visits approved by Insurance: NA Date of Evaluation: 12/13/18 Payer Source: MEDICARE Treatment Diagnosis: aftercare following total knee replacement, R knee pain, muscle weakness Current Subjective/complaints:: Patient reports soreness right bashir ovet the weekend following increase in resistive exercise with weights. Reports increase ROM of the right knee and states she seems to be walking better. *Precautions: n/a Interventions - Exercise/Activities/Manual Therapy Exercises/Activities: Assisted stretching of the right hamstrings, SKTC, and heel cords. Isometric quads, hamstrings. Red theraband for resistive right ankle df, ham curl, hip add and hip abd in hook-lying. SAQ reduced to 1#. SLR with 1# 3s/10reps. Isometric hip add and isometric ankle inversion. In sitting, LAQ, heel slides, and red theraband resisted ham curl. Patient continues to need assist on stationary bike, pedals half revolutions 3mins, also assist with foot placement on pedals and seat adjustments. Total minutes of Exercise: 40mins Manual Therapy: n/a HOME EXERCISE PROGRAM: pt has written HEP from home care and swing bed. pt given QS with heel elevated as well as SAQ. - Charges Timed Code Treatment Minutes: 40mins Total Treatment Time: 43mins Procedures billed for this date of service:: EX3 Assessment: Patient progessing with exercise, ROM, and with functional ambulation. Patient Education: Home Exercise Program Patient demonstrates compliance with HEP?: Yes Short Term Goals Goal #1: pt independent with HEP Goal to be met by: 12/27/18 Progress towards Goal:: Progressing Goal #2: Improve R knee flex 95 ext -2 Goal to be met by: 12/27/18 Progress towards Goal:: Partially Met (Continues to demo a lag in full extension.) Goal #3: Improve RLE strength 4- to 4/5 Goal to be met by: 12/27/18 Goal #4: Edema decreased RLE equal to LLE Goal to be met by: 12/27/18 [facility] Goals Goal #1: pt report ability to perform normal daily household tasks w less pain Goal to be met by: 01/11/19 Progress towards goal: Progressing Goal #2: Improve R knee flex 100 ext 0 Goal to be met by: 01/11/19 Goal #3: Gait speed improved to 0.8m/s consistent with community ambulator Goal to be met by: 01/11/19 Plan Dates of Life Advisor Goals: 01/11/19 Expiration date of current Insurance Approval:: 01/11/19 PLAN: Progress with ROM and strengthening of the right LE to increase patients functional activity level.
--- NOTE | 2018-12-28 11:42 | RS.OPPTDN ---
Subjective Date of Note: 12/28/18 Visit #: 5 Number of visits approved by Insurance: Reasssess at 10th Date of Evaluation: 12/13/18 Payer Source: MEDICARE Treatment Diagnosis: aftercare following total knee replacement, R knee pain, muscle weakness Current Subjective/complaints:: Patient c/o stiffness to the R knee. She says she used ice on it this morning. States since weight was reduced last session, soreness has left along the bashir. She also reports ache to the L knee and uses Biofreeze. *Precautions: n/a - Heat/Cryotherapy Treatment: Hot Pack (15 mins to the R hamstring in supine prior to exercise.) Interventions - Exercise/Activities/Manual Therapy Exercises/Activities: Assisted stretching of the right hamstrings, SKTC, and heel cords. Isometric quads, hamstrings. Red theraband for resistive right ankle df, ham curl, hip add and hip abd in hook-lying. Continued with SAQ using 1#. SLR with 1# 3s/10reps. Isometric hip add and isometric ankle inversion. In sitting, LAQ, heel slides, and red theraband resisted ham curl. Patient continues to need assist on stationary bike, pedals half revolutions and then was able to perform full revolution forward x 3 1/2mins, also assist with foot placement on pedals and seat adjustments. Measurements taken. Total minutes of Exercise: 38 Manual Therapy: n/a HOME EXERCISE PROGRAM: pt has written HEP from home care and swing bed. pt given QS with heel elevated as well as SAQ. - Objective Findings Observations,measurements,etc.: -3 to 95 degrees (flexion measured at EOB) - Charges Timed Code Treatment Minutes: 38 Total Treatment Time: 52 Procedures billed for this date of service:: hp, ex3 Assessment: Patient presented with increased stiffness to the R knee, but applying moist heat along hamstrings appeared to reduce soreness/stiffness and allow for improved mobility. She is amb short distances in her home and in our dept without the use of her cane and is steady. She demo improvement with knee flexion more so seen with flexion today. Patient Education: Home Exercise Program, Home Safety Patient demonstrates compliance with HEP?: Yes Short Term Goals Goal #1: pt independent with HEP Goal to be met by: 12/27/18 Progress towards Goal:: Progressing Goal #2: Improve R knee flex 95 ext -2 Goal to be met by: 12/27/18 Progress towards Goal:: Partially Met (Continues to demo a lag in full extension.) Comments:: Patient demo 95 to -3 today Goal #3: Improve RLE strength 4- to 4/5 Goal to be met by: 12/27/18 Progress towards Goal:: Progressing Goal #4: Edema decreased RLE equal to LLE Goal to be met by: 12/27/18 Progress towards Goal:: Progressing (slight edema compared to the L) [facility] Goals Goal #1: pt report ability to perform normal daily household tasks w less pain Goal to be met by: 01/11/19 Progress towards goal: Progressing Goal #2: Improve R knee flex 100 ext 0 Goal to be met by: 01/11/19 Goal #3: Gait speed improved to 0.8m/s consistent with community ambulator Goal to be met by: 01/11/19 Plan Dates of Video Library Assistant Goals: 01/11/19 Expiration date of current Insurance Approval:: 01/11/19 PLAN: Patient to continue for therex to the R knee to improve ROM
--- NOTE | 2019-01-01 14:30 | RS.OPPTDN ---
Subjective Date of Note: 01/01/19 Visit #: 6 Number of visits approved by Insurance: 8-12, Reassess at 10th Date of Evaluation: 12/13/18 Payer Source: MEDICARE Treatment Diagnosis: aftercare following total knee replacement, R knee pain, muscle weakness Current Subjective/complaints:: Patient says she has mild soreness to the R knee intermittently. She says she is anxious for the weather to improve so that she can get out and care for her asif and walk more. *Precautions: n/a - Heat/Cryotherapy Treatment: Cryotherapy (15 mins to the R knee following therex in supine) Interventions - Exercise/Activities/Manual Therapy Exercises/Activities: Assisted stretching of the right hamstrings, SKTC, and heel cords. Isometric quads, hamstrings. Red theraband for resistive right ankle df, ham curl, hip add and hip abd in hook-lying. Continued with SAQ using 1#. SLR with 1# 3s/10reps. Isometric hip add and isometric ankle inversion. In sitting, LAQ, heel slides, isometric hamstring sets x 10, and red theraband resisted ham curl. Patient continues to need assist on stationary bike, pedals half revolutions and then was able to perform full revolution forward and retro x 5 mins, also assist with foot placement on pedals and seat adjustments. Total minutes of Exercise: 38 Manual Therapy: n/a HOME EXERCISE PROGRAM: pt has written HEP from home care and swing bed. pt given QS with heel elevated as well as SAQ. - Charges Timed Code Treatment Minutes: 38 Total Treatment Time: 53 Procedures billed for this date of service:: cp, ex3 Assessment: Patient demo improved ease with lorelei all therex, demo improved knee extension. She demo increased flexion at EOB following isometrics (ham sets) by ~4 degrees. She is amb with SC with increased stability and bal as she also admits improved steadiness. Patient Education: Body/Joint mechanics, Home Exercise Program, Home Safety Patient demonstrates compliance with HEP?: Yes Short Term Goals Goal #1: pt independent with HEP Goal to be met by: 12/27/18 Progress towards Goal:: Progressing Goal #2: Improve R knee flex 95 ext -2 Goal to be met by: 12/27/18 Progress towards Goal:: Partially Met (Continues to demo a lag in full extension.) Goal #3: Improve RLE strength 4- to 4/5 Goal to be met by: 12/27/18 Progress towards Goal:: Progressing Goal #4: Edema decreased RLE equal to LLE Goal to be met by: 12/27/18 Progress towards Goal:: Progressing (slight edema compared to the L) [facility] Goals Goal #1: pt report ability to perform normal daily household tasks w less pain Goal to be met by: 01/11/19 Progress towards goal: Progressing Goal #2: Improve R knee flex 100 ext 0 Goal to be met by: 01/11/19 Goal #3: Gait speed improved to 0.8m/s consistent with community ambulator Goal to be met by: 01/11/19 Plan Dates of Book Repairer Goals: 01/11/19 Expiration date of current Insurance Approval:: 01/11/19 PLAN: Patient to continue for general strengthening and mobility to the R knee
--- NOTE | 2019-01-04 14:58 | RS.OPPTDN ---
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 She says the increased walking did not bother her at all. She says she is able to see improvement with her mobility in her knee and able to feel more strength in her knee as well. She says [place] and felt no difficulty. *Precautions: n/a - Heat/Cryotherapy Treatment: Cryotherapy (15 mins after therex in supine) Interventions - Exercise/Activities/Manual Therapy Exercises/Activities: Assisted stretching of the right hamstrings, SKTC, and heel cords. Isometric quads, hamstrings. Increased to green theraband for resistive right ankle df, ham curl, ball squeezes for hip add and hip abd with green tband in hook-lying. Continued with SAQ increasing to 1 1/2#. SLR with 1 # 3s/10reps. Isometric ankle inversion using ball between ankles x 10. In sitting, LAQ, heel slides, isometric hamstring sets x 10, and red theraband resisted ham curl. Patient continues to need assist on stationary bike, pedals half revolutions and then was able to perform full revolution forward and retro x 5 mins, also assist with foot placement on pedals and seat adjustments. Standing ham curls. Measurements taken. Total minutes of Exercise: 35 Manual Therapy: n/a HOME EXERCISE PROGRAM: pt has written HEP from home care and swing bed. pt given QS with heel elevated as well as SAQ. - Objective Findings Observations,measurements,etc.: -2 degrees to 102 in supine after therex actively - Charges Timed Code Treatment Minutes: 35 Total Treatment Time: 50 Procedures billed for this date of service:: cp, ex3 Assessment: Patient vicky increased knee flexion actively today from last week. She is able to amb more at work and admits improved stability and overall strength allowing her to drive longer distances than just in town. She can amb short distances without her cane. Patient Education: Home Exercise Program, Home Safety, Education of Plan of Care Patient demonstrates compliance with HEP?: Yes Short Term Goals Goal #1: pt independent with HEP Goal to be met by: 12/27/18 Progress towards Goal:: Progressing Goal #2: Improve R knee flex 95 ext -2 Goal to be met by: 12/27/18 Progress towards Goal:: Met (Patient's measurements are -2 to 102 today) Goal #3: Improve RLE strength 4- to 4/5 Goal to be met by: 12/27/18 Progress towards Goal:: Partially Met (Strength measured to 4- today) Goal #4: Edema decreased RLE equal to LLE Goal to be met by: 12/27/18 Progress towards Goal:: Progressing (slight edema compared to the L) [facility] Goals Goal #1: pt report ability to perform normal daily household tasks w less pain Goal to be met by: 01/11/19 Progress towards goal: Progressing Goal #2: Improve R knee flex 100 ext 0 Goal to be met by: 01/11/19 Goal #3: Gait speed improved to 0.8m/s consistent with community ambulator Goal to be met by: 01/11/19 Plan Dates of Usp Goals: 01/11/19 Expiration date of current Insurance Approval:: 01/11/19 PLAN: Patient to continue BIW next week and then may follow up with MD and discontinue per her request.
--- NOTE | 2019-01-08 10:54 | RS.OPPTDN ---
Subjective Date of Note: 01/08/19 Visit #: 8 Number of visits approved by Insurance: [id number] Date of Evaluation: 12/13/18 Payer Source: MEDICARE Treatment Diagnosis: aftercare following total knee replacement, R knee pain, muscle weakness Current Subjective/complaints:: Patient says she just had an injection to the L knee yesterday and it is feeling much better. She says some of the exercises she was limited to for the R knee (sx knee) was because of the L. She says she is amb without her cane at home and is wanting to leave it at home when she comes to her next PT appt. Reports she is very pleased with how well her R knee is doing and the strength she has gained in it. *Precautions: n/a Pain Assessment - Pain Description Pain Location: medial R knee - Heat/Cryotherapy Treatment: Cryotherapy (bilateral knees after therex x 12 mins) Interventions - Exercise/Activities/Manual Therapy Exercises/Activities: Assisted stretching of the right hamstrings, SKTC, and heel cords. Isometric quads, hamstrings. Green theraband for resistive right ankle df, ham curl, ball squeezes for hip add and hip abd with green tband in hook-lying. Continued with SAQ 1 1/2#. SLR with 1# 3s/10reps. Isometric ankle inversion using ball between ankles x 10. In sitting, LAQ 1 1/2#, heel slides, hamstring curls with green tband x 10. Patient avoided stationary bike today in fear to increase pain/irritation to the L knee in which she just received injection for. Total minutes of Exercise: 29 Manual Therapy: n/a HOME EXERCISE PROGRAM: pt has written HEP from home care and swing bed. pt given QS with heel elevated as well as SAQ. - Charges Timed Code Treatment Minutes: 29 Total Treatment Time: 41 Procedures billed for this date of service:: cp, ex2 Assessment: Patient progressing well with R TKR demo increased abiltiy to lorelei stretching into knee flexion and also now having less pain to the L knee regarding injection. She is now amb within her home without her cane and is eager to begin amb into therapy next visit without it. Recommended her to bring it in her car so that she may have it for community or errand running after therapy. She is consciously trying to place more WBing onto the L LE to form more correct gait. Patient Education: Education of Plan of Care Patient demonstrates compliance with HEP?: Yes Short Term Goals Goal #1: pt independent with HEP Goal to be met by: 12/27/18 Progress towards Goal:: Progressing Goal #2: Improve R knee flex 95 ext -2 Goal to be met by: 12/27/18 Progress towards Goal:: Met (Patient's measurements are -2 to 102 today) Goal #3: Improve RLE strength 4- to 4/5 Goal to be met by: 12/27/18 Progress towards Goal:: Partially Met (Strength measured to 4- today) Goal #4: Edema decreased RLE equal to LLE Goal to be met by: 12/27/18 Progress towards Goal:: Progressing (slight edema compared to the L) [facility] Partner Goals Goal #1: pt report ability to perform normal daily household tasks w less pain Goal to be met by: 01/11/19 Progress towards goal: Progressing Goal #2: Improve R knee flex 100 ext 0 Goal to be met by: 01/11/19 Goal #3: Gait speed improved to 0.8m/s consistent with community ambulator Goal to be met by: 01/11/19 Plan Dates of Prison Goals: 01/11/19 Expiration date of current Insurance Approval:: 01/11/19 PLAN: Patient to continue working on strengthening and flexibility to the R knee.
--- NOTE | 2019-01-11 10:46 | RS.OPPTDN ---
Subjective Date of Note: 01/11/19 Visit #: 9 Number of visits approved by Insurance: [id number] Date of Evaluation: 12/13/18 Payer Source: MEDICARE Treatment Diagnosis: aftercare following total knee replacement, R knee pain, muscle weakness Current Subjective/complaints:: Patient says she is getting in/out of her car easier as she is using the buttons to move her forward/backward. She is able to clothes shop easier as well being able to walk around the store without pain to the R knee, just having pain to the L now with WBing. She is hopeful to get out and tend to her asif, but squatting is still difficult for her. Reports this and running errands are her only "hobbies." *Precautions: n/a Interventions - Exercise/Activities/Manual Therapy Exercises/Activities: Assisted stretching of the right hamstrings, SKTC, and heel cords. Isometric quads, hamstrings. Green theraband for resistive right ankle df, ham curl, ball squeezes for hip add and hip abd with green tband in hook-lying. Continued with SAQ 1 1/2#. SLR with 1 1/2# 3s/10reps. Isometric ankle inversion using ball between ankles x 10. Heel slides and hip abd with knee extended with 1 1/2# 2x10. In sitting, LAQ 1 1/2#, heel slides, hamstring curls with green tband x 10, hip flexion with 1 1/2#. Instructed in and performed sitting ham curls with green tband for bilateral LEs x 10. Patient avoided stationary bike today in fear to increase pain/irritation to the L knee in which she just received injection for. Total minutes of Exercise: 38 Manual Therapy: n/a HOME EXERCISE PROGRAM: pt has written HEP from home care and swing bed. pt given QS with heel elevated as well as SAQ. - Objective Findings Observations,measurements,etc.: LE Functional Scale: 48/80 or 40% impairment. Eval: 31/80 or 62% impairment. -2 degrees to 106 actively in supine - Charges Timed Code Treatment Minutes: 38 Total Treatment Time: 38 Procedures billed for this date of service:: ex3 Assessment: Improved R knee mobility and strength overall. Increased ability to perform functional tasks including getting out into the community having her hair done and shopping. She is eager to get back to working with her asif as it is Spring, but she is leary of doing this because of difficulty squatting on the uninvolved knee. Patient Education: Education of diagnosis, Home Exercise Program, Education of Plan of Care Patient demonstrates compliance with HEP?: Yes Short Term Goals Goal #1: pt independent with HEP Goal to be met by: 12/27/18 Progress towards Goal:: Met Goal #2: Improve R knee flex 95 ext -2 Goal to be met by: 12/27/18 Progress towards Goal:: Met (Patient's measurements are -2 to 102 today) Goal #3: Improve RLE strength 4- to 4/5 Goal to be met by: 12/27/18 Progress towards Goal:: Partially Met (Strength measured to 4- today) Goal #4: Edema decreased RLE equal to LLE Goal to be met by: 12/27/18 Progress towards Goal:: Progressing (slight edema compared to the L) Shelter Goals Goal #1: pt report ability to perform normal daily household tasks w less pain Goal to be met by: 01/11/19 Progress towards goal: Progressing Goal #2: Improve R knee flex 100 ext 0 Goal to be met by: 01/11/19 Progress towards goal: Partially Met Comments: Met for flexion Goal #3: Gait speed improved to 0.8m/s consistent with community ambulator Goal to be met by: 01/11/19 Progress towards goal: Progressing Plan Dates of Shelter Goals: 01/11/19 Expiration date of current Insurance Approval:: 01/11/19 PLAN: Patient may benefit from BIW for 2 more weeks to assist with squatting and increased strength so that she may return to her caring for her asif and give more confidence in bending down to get items off of the floor.
--- NOTE | 2019-01-14 13:52 | RS.OPPTDC ---
Date of Discharge: 01/11/19 Date of Evaluation: 12/13/18 Number of Visits: 9 Treatment Diagnosis: aftercare following total knee replacement, R knee pain, muscle weakness Current Level of Function: AROM R knee flex 106 ext -2, Improved LE functional scale from 31/80 on eval to 48/80 at DC. pt has difficulty squatting down. pt is able to amb without cane in the home. Amb independently with cane community distances. Current Complaints/Gains: pt states she is eager to return to caring for asif , but feels unsafe due to difficulty squatting. She reports decreased pain to little to none. pt feels she would benefit from approx 2 more weeks of PT to be able to amb without cane. Functional Outcome Measure LE Functional Scale: 48 - G Codes & Severity Modifier G Codes & Modifier: n/a Source of G Code score: n/a Observation - Observation Posture: Forward Head, Rounded Shoulders Gait - Gait Pattern General Gait Pattern Observation: Antalgic Gait Interventions - Exercise/Activities/Manual Therapy Exercises/Activities: n/a Manual Therapy: n/a HOME EXERCISE PROGRAM: pt has written HEP from home care and swing bed. pt given QS with heel elevated as well as SAQ. - Charges Timed Code Treatment Minutes: n/a Total Treatment Time: n/a Procedures billed for this date of service:: n/a Assessment Assessment: pt progressing well. pt has met all STG and LTG 1,3. pt requests we call MD to continue PT. Feel pt may benefit from continued PT to focus on amb without cane. MD reports they will see pt on 02/19/19 and determine then if she needs further PT. Patient Education: Home Exercise Program, Education of Plan of Care Rehab Potential: Good Short Term Goals Goal #1: pt independent with HEP Goal to be met by: 12/27/18 Progress towards Goal:: Met Goal #2: Improve R knee flex 95 ext -2 Goal to be met by: 12/27/18 Progress towards Goal:: Met (Patient's measurements are -2 to 102 today) Goal #3: Improve RLE strength 4- to 4/5 Goal to be met by: 12/27/18 Progress towards Goal:: Met (Strength measured to 4- today) Goal #4: Edema decreased RLE equal to LLE Goal to be met by: 12/27/18 Progress towards Goal:: Met (slight edema compared to the L) Structures Engineer Goals Goal #1: pt report ability to perform normal daily household tasks w less pain Goal to be met by: 01/11/19 Progress towards goal: Met Goal #2: Improve R knee flex 100 ext 0 Goal to be met by: 01/11/19 Progress towards goal: Partially Met Goal #3: Gait speed improved to 0.8m/s consistent with community ambulator Goal to be met by: 01/11/19 Progress towards goal: Met Plan Comments: most goals met.
== END 2019-01-20 23:59 ==
PROVIDERS: ATTEND Orthopaedic Surgery
DX: Z96.651 Presence of right artificial knee joint (principal); M25.561 Pain in right knee

== ENCOUNTER 2019-06-21 06:30 | Outpatient (CLI) | payer OTHER ==
[2019-06-21] MEDS: DOBUTAMINE 500 MG-D5W 250 ML 250 ML IV ONE (08:02)
[2019-06-21] MEDS: ATROPINE SULFATE PFS ONE (08:12)
--- NOTE | 2019-06-21 08:44 | DOBSTECHO ---
Date of Test: 06/21/19 Ordering Physician: DR. LEA BALES Occupation: RETIRED Reason for Examination: CAD WITH STENT, SOB, SURGICAL CLEARANCE Current Medications: ASA, SYNTHROID, LOVASTATIN, CARVEDILOL, GABAPENTIN Height: 61" Weight: 113 LBS Target Heart Rate: 114/135 S-T Segment Stage Time HR BPM BP MMHG Rhythm +/- Elevation Depression Symptoms Control Sitting 60 BPM 120/72 SR X NONE Dobutamine 250mg/D5W 5cmg/KG/mn 10cmg/KG/mn 3:00 69 132/64 SR X NONE 15cmg/KG/mn 2:00 71 SR X NONE 20cmg/KG/mn 2:00 73 144/62 SR X NONE 25cmg/KG/mn 2:00 74 126/54 SR X NONE 30cmg/KG/mn 1:55 116 162/54 SR X .25 ATROPINE 35cmg/KG/mn 40cmg/KG/mn 4 MIN POST INFUSION z 90 132/64 SR X NONE 10 MIN POST INFUSION z 72 124/64 SR X NONE DURATION OF INFUSION 10:55 MAXIMUM HEART RATE REACHED 116 BPM 98% OXYGEN SATURATION WITH EXERCISE ON ROOM AIR Interpretation: 1. TEST NEGATIVE FOR ISCHEMIC ST-T WAVE CHANGES 2. NO CHEST PAIN OR DISCOMFORT 3. NORMAL LEFT VENTRICULAR CONTRACTILITY--RESTING AND DURING DOBUTAMINE INFUSION MTDD
--- NOTE | 2019-06-21 08:46 | ECHOSTRESS ---
Date of Exam: 06/21/19 Ordering Physician: DR. LEA BALES Reason for Echo: SOB, CAD WITH STENT, SURGICAL CLEARANCE, DOBUTAMINE STRESS--NO ISCHEMIA M-Mode Normal Adult Results LV Dimensions Normal Adult Results AoV Opening excursions >1.6 LVEDD-base- 3.5-5.8 Ao root dimensions 2.0-3.7 LVESD-base- 3.1-4.6 L. Atrium dimensions 1.9-3.8 Post. Wall thickness 0.8-1.1 IV septum (thickness) 0.7-1.2 Post. Wall excursion 0.72-1.3 Septal motion Systolic motion R. Ventricular cavity 1.5-2.0 LVEF 60% Paradoxical septal wall motion 2-D: NORMAL LEFT VENTRICULAR CONTRACTILITY--RESTING AND WITH DOBUTAMINE INFUSION M-MODE: MV: AV: TV: PV: CHAMBER SIZE: WALL MOTION: NORMAL LEFT VENTRICULAR CONTRACTILITY--RESTING AND WITH DOBUTAMINE INFUSION PERICARDIUM: INTERPRETATION: 1. NORMAL LEFT VENTRICULAR CONTRACTILITY--RESTING AND WITH DOBUTAMINE INFUSION MTDD
--- NOTE | 2019-06-21 10:25 | ECHO2D ---
Date of Exam: 06/21/19 Ordering Physician: DR. LEA BALES Room #: OP Reason for Echo: SOB, CAD WITH STENT, SURGICAL CLEARANCE M-Mode Normal Adult Results LV Dimensions Normal Adult Results AoV Opening excursions >1.6 >1.6 LVEDD-base- 3.5-5.8 3.9 Ao root dimensions 2.0-3.7 3.0 LVESD-base- 3.1-4.6 L. Atrium dimensions 1.9-3.8 4.0 Post. Wall thickness 0.8-1.1 1.2 IV septum (thickness) 0.7-1.2 1.1 Post. Wall excursion 0.72-1.3 NORMAL Septal motion NORMAL Systolic motion R. Ventricular cavity 1.5-2.0 NORMAL LVEF 60% 73% Paradoxical septal wall motion NORMAL 2-D : 2-D M Mode Echocardiogram was performed using apical four chamber and left parasternal long and short axis views. Mitral, tricuspid and aortic valves appear to be normal. Contractility of the left ventricle seems to be normal, so is the cavity size. Left atrial cavity size and aortic root appear to be normal. There is no pericardial effusion. There is no thrombus noted in the left ventricular or left aortic cavity. No mitral valve prolapse noted. M-MODE: MV: NORMAL AV: NORMAL TV: NORMAL PV: CHAMBER SIZE: NORMAL WALL MOTION: NORMAL PERICARDIUM: NORMAL INTERPRETATION: 1. NORMAL 2 "D" "M" MODE ECHO MTDD
== END 2019-06-21 06:31 | disposition home or self-care (01) ==
LOC: CAR 06:30
PROVIDERS: ATTEND Internal Medicine
DX: R06.02 Shortness of breath (principal); I25.10 Atherosclerotic heart disease of native coronary artery without angina pectoris; Z95.5 Presence of coronary angioplasty implant and graft; Z01.810 Encounter for preprocedural cardiovascular examination